=== PATIENT | male | born 1930 | race Asian ===

== ENCOUNTER → 2016-05-29 | Outpatient (CLI) | payer OTHER ==
[~2016-05-29] MED LIST: ALPR-411 PO; ASPI81TA28 PO; ATOR-22 PO; CHOL100010 PO; CYAN500T PO; CZR50 PO; HYDR25TA4 PO; MELATAB2 PO; OMEP40CA PO; VITA400C15 PO
--- NOTE | 2016-05-29 17:01 | ECHOCARDIOGRAM REPORT ---
*NOTICE TO RECEIVING LIBERTARIAN AGENCY This information is strictly Confidential and protected under [place] law. [place] law prohibits you from making any further disclosure of this information unless further disclosure is expressly permitted by the written consent of the person to whom it pertains or is authorized by law. A general authorization for the release of medical or other information is not sufficient for this purpose. Hospital accepts no responsibility if the information is made available to any other person, INCLUDING THE PATIENT. Interpretation Summary * Name: LUIS CERRATO Study Date: 05/29/2016 02:46 PM * Patient Location: [facility] HR: 86 * : 1930 (M/d/yyyy) Gender: Male Height: 64 in * Age: 85 yrs Ethnicity: Weight: 161 lb * Ordering Physician: Adeola Colorado * Referring Physician: Adeola Colorado * Performed By: Farzaneh Carroll RCS * * Reason For Study: GENERALIZED EDEMA * BSA: 1.8 m2 * -- Conclusions -- * The left ventricle is normal in size. * There is moderate concentric left ventricular hypertrophy. * Ejection Fraction = 50-55%. * Left ventricular systolic function is normal. * The right ventricular systolic function is normal. * Grade I diastolic dysfunction, (abnormal relaxation pattern). * The left atrial size is normal. * Right atrial size is normal. * No significant valvular pathology Procedure Details * A complete two-dimensional transthoracic echocardiogram was performed (2D, M-mode, Doppler and color flow Doppler). Left Ventricle * The left ventricle is normal in size. * There is moderate concentric left ventricular hypertrophy. * Ejection Fraction = 50-55%. * Left ventricular systolic function is normal. * The left ventricular wall motion is normal. Right Ventricle * The right ventricle is normal size. * The right ventricular systolic function is normal. Atria * The left atrial size is normal. * Right atrial size is normal. * The interatrial septum is intact with no evidence for an atrial septal defect. Mitral Valve * There is mild to moderate mitral annular calcification. * There is no mitral regurgitation noted. Tricuspid Valve * The tricuspid valve is not well visualized, but is grossly normal. * Significant tricuspid regurgitation is absent. Aortic Valve * The aortic valve is tricuspid. The leaflet thickness if normal. There is no aortic stenosis, and no significant insufficiency. * Aortic stenosis is absent. * There is no significant aortic regurgitation. Pulmonic Valve * The pulmonic valve is not well visualized. * There is no significant pulmonary regurgitation. Great Vessels * The aortic root and proximal ascending aorta are normal sized. Pericardium/Pleural * There is no pericardial effusion. Left Ventricular Diastolic Function * Grade I diastolic dysfunction, (abnormal relaxation pattern). MMode 2D Measurements and Calculations Ao root diam 4.6 cm Ao root area 16.5 cm\S\2 ACS 1.8 cm LA dimension 2.7 cm LA/Ao 0.60 LVAd ap4 22.5 cm\S\2 LVLd ap4 6.9 cm EDV(MOD-sp4) 59.0 ml EDV(sp4-el) 62.5 ml LVAs ap4 14.9 cm\S\2 LVLs ap4 6.3 cm ESV(MOD-sp4) 30.1 ml ESV(sp4-el) 30.1 ml EF(MOD-sp4) 49.1 % EF(sp4-el) 51.9 % LVAd ap2 25.4 cm\S\2 LVLd ap2 8.2 cm EDV(MOD-sp2) 64.8 ml EDV(sp2-el) 66.8 ml LVAs ap2 15.1 cm\S\2 LVLs ap2 6.3 cm ESV(MOD-sp2) 30.4 ml ESV(sp2-el) 30.9 ml EF(MOD-sp2) 53.1 % EF(sp2-el) 53.8 % LVLd %diff 15.9 % EDV(MOD-bp) 67.3 ml LVLs %diff 0.73 % ESV(MOD-bp) 30.3 ml EF(MOD-bp) 54.9 % SV(MOD-sp4) 29.0 ml SI(MOD-sp4) 16.2 ml/m\S\2 SV(MOD-sp2) 34.4 ml SI(MOD-sp2) 19.3 ml/m\S\2 SV(MOD-bp) 37.0 ml SI(MOD-bp) 20.7 ml/m\S\2 SV(sp4-el) 32.4 ml SI(sp4-el) 18.2 ml/m\S\2 SV(sp2-el) 36.0 ml SI(sp2-el) 20.2 ml/m\S\2 Doppler Measurements and Calculations MV E max ryan 73.3 cm/sec MV A max ryan 111.6 cm/sec MV E/A 0.66 MV P1/2t max ryan 75.9 cm/sec MV P1/2t 73.5 msec MVA(P1/2t) 3.0 cm\S\2 MV dec slope 302.4 cm/sec\S\2 MV dec time 0.25 sec Ao V2 max 72.8 cm/sec Ao max PG 2.1 mmHg Ao max PG (full) 0.68 mmHg AI max ryan 419.5 cm/sec AI max PG 70.4 mmHg AI dec slope 194.8 cm/sec\S\2 AI P1/2t 630.5 msec LV V1 max PG 1.4 mmHg LV V1 max 59.9 cm/sec MR max ryan 416.2 cm/sec MR max PG 69.3 mmHg PA V2 max 81.2 cm/sec PA max PG 2.6 mmHg TR max ryan 255.4 cm/sec
== END | disposition home or self-care (01) ==
LOC: C.CPL 14:38
PROVIDERS: ATTEND Internal Medicine
DX: R60.1 Generalized edema (principal); I51.7 Cardiomegaly

== ENCOUNTER → 2016-07-04 | Outpatient (CLI) | payer OTHER ==
--- NOTE | 2016-07-04 09:58 | DIAGNOSTIC IMAGING REPORT ---
ULTRASOUND LEFT LOWER EXTREMITY VENOUS CLINICAL HISTORY: Left leg pain and swelling. COMPARISON STUDY: Left lower extremity venous ultrasound dated 10/06/2014. TECHNIQUE: Real-time, grayscale, and color Doppler sonography of the deep veins of the left lower extremity was performed from the inguinal crease to the calf. Compression and augmentation were utilized. FINDINGS: There is no sonographic evidence of deep venous thrombosis identified in the left lower extremity. The common femoral, superficial femoral, and popliteal veins are patent and normally compressible. The greater saphenous vein and the profunda femoris vein at the junction with the common femoral vein are clear. The visualized calf veins are patent. Soft tissue edema is present in the left lower extremity. IMPRESSION: There is no sonographic evidence of deep venous thrombosis identified in the left lower extremity. Electronically signed by: Osvaldo Reilly M.D. 07/04/2016 9:57 AM Dictated Date/Time: 07/04/2016 9:56 AM
== END | disposition home or self-care (01) ==
LOC: C.ULTRBC 09:33
PROVIDERS: ATTEND Physician Assistant
DX: M79.605 Pain in left leg (principal); R60.0 Localized edema

== ENCOUNTER 2017-01-21 18:30 | Emergency (ER) | payer OTHER ==
[~2017-01-21] VITALS: Ht 170.2 cm; Wt 78.8 kg
[2017-01-21 18:46] VITALS: TEMP 36.6; Ht 170.2 cm; Wt 78.8 kg
--- NOTE | 2017-01-21 19:04 | EMERGENCY ROOM VISIT NOTE ---
History Report prepared by Tejal: Jessica Saleh Under the Supervision of: Dr. Krsihna Walker M.D. First contact with patient: 18:51 Chief Complaint: FALL Stated Complaint: REF BY History of Present Illness The patient is an 86 year old male with a past medical history of HTN and gout who presents to the ED with a cc of a fall that occurred yesterday. He reports he fell around 2100 last night when getting up from a table. He hit the left side of his head and left eye during the fall. He notes the floor was not carpeted. Positive swelling to the left eye. Negative LOC, headache, neck pain, chest pain, SOB, back pain, abdominal pain, vision changes. He states he saw his PCP earlier today, and on the way home, was called by a nurse and advised to come to the ED. The patient notes his doctor prescribed him Furosemide within the past 6 months and he takes Losartan for his hypertension. Source of History: patient Onset: 2100 last night Position: other (global) Timing: resolved Associated Symptoms: No LOC, No headache, No neck pain, No chest pain, No SOB, No abdominal pain, No back pain Review of Systems See HPI for pertinent positives and negatives. A total of ten systems were reviewed and were otherwise negative. Past Medical & Surgical Medical Problems: (1) Gout (2) Hypertension Social History Smoking Status: Never Smoker Alcohol Use: none Drug Use: none Marital Status: Housing Status: lives with family Occupation Status: retired Current/Historical Medications Scheduled Aspirin (Aspirin Ec), 81 MG PO DAILY Atorvastatin (Lipitor), 1 TAB PO DAILY Cholecalciferol (Vitamin D), 5,000 INTER.UNIT PO QAM Cyanocobalamin (Vitamin B-12), 500 MCG PO QPM Hydrochlorothiazide (Hctz), 12.5 MG PO DAILY Losartan Potassium (Losartan Potassium), 50 MG PO QAM Melatonin (Melatonin Maximum Strengt), 1 TAB PO HS Omeprazole (Prilosec), 40 MG PO BID Tocopheryl Acet,Dl-Alpha (Vitamin E), 400 INTER.UNIT PO BID Scheduled PRN Alprazolam (Alprazolam), 0.25 MG PO DAILY PRN for Anxiety Allergies Coded Allergies: Adhesives (Verified Allergy, Unknown, SOME TAPE YRS AGO-REDNESS, RASH, ) Allopurinol (Verified Allergy, Unknown, HIVES-pt not aware, 04/04/15) Physical Exam Vital Signs Date Time Temp Pulse Resp B/P (MAP) Pulse Ox O2 Delivery O2 Flow Rate FiO2 01/21/17 21:30 79 21 152/80 97 Room Air 01/21/17 19:45 96 01/21/17 19:37 96 Room Air 01/21/17 19:34 85 120/72 100 143/74 98 132/73 01/21/17 18:46 36.6 107 20 153/84 98 Room Air Physical Exam GENERAL: Awake, alert, well-appearing, NAD HENT: Normocephalic, atraumatic. EYES: Periorbital ecchymosis and swelling to left eye. PERRL bilaterally. No hyphema. EOMI without pain. Some chemosis, no subconjunctival hemorrhage. Sclera non-icteric. NECK: Supple. No nuchal rigidity. FROM. No midline tenderness to cervical spine. RESPIRATORY: CTAB, no rhonchi, wheezing, crackles CARDIAC: RRR, no MRG ABDOMEN: Soft, NTND, BS+ MSK: No chest wall TTP, no LE edema. No chest, back, abdomen or extremity pain. NEURO: GCS 15, CN 2-12 intact, moves all 4s on command SKIN: No rash or jaundice noted. Medical Decision & Procedures ER Provider Diagnostic Interpretation: Radiology results as stated below per my review and radiologist interpretation: CHEST ONE VIEW PORTABLE CLINICAL HISTORY: Altered mental status. Weakness. COMPARISON STUDY: Chest radiograph February 01, 2012. FINDINGS: Lung volumes are diminished. Dense right lower hemithorax calcification is likely pleural in location. This is unchanged. There is no pneumothorax or pleural effusion. Mild cardiomegaly is noted without evidence of pulmonary edema. Apparent right pleural thickening is unchanged. IMPRESSION: No acute cardiopulmonary findings. No change in appearance of the chest. Electronically signed by: Hernando Flynn M.D. 01/21/2017 7:[address] OF THE CERVICAL SPINE WITHOUT CONTRAST CLINICAL HISTORY: Fall. COMPARISON STUDY: No previous studies for comparison. TECHNIQUE: Helical axial images of the cervical spine were obtained without IV contrast. Sagittal and coronal reconstructions were viewed. A dose lowering technique was utilized adhering to the principles of ALARA. FINDINGS: Craniocervical junction is intact. There is no acute cervical spine fracture. There is reversal of the normal cervical lordosis. Mild anterolisthesis of C2 on C3 and C7 on T1 is likely due to facet arthrosis. There is no prevertebral edema. 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 IMPRESSION: No acute cervical spine fracture or subluxation. Electronically signed by: Hernando Flynn M.D. 01/21/2017 9:[address] OF THE HEAD WITHOUT CONTRAST CLINICAL HISTORY: Fall. Altered mental status. Weakness. COMPARISON STUDY: Head CT February 01, 2012. TECHNIQUE: Helical axial images of the head were obtained without IV contrast. Automated exposure control was utilized for the study. A dose lowering technique was utilized adhering to the principles of ALARA. FINDINGS: No acute intracranial hemorrhage, midline shift or mass effect is present. Ventricular system is normal for age. Basilar cisterns are patent. There are no extra-axial collections. Purcell-white differentiation is maintained. There is a left periorbital contusion. Left globe is intact. There is no retrobulbar hematoma. There is no calvarial fracture. Facial bones are better depicted on the maxillofacial CT. IMPRESSION: 1. No acute intracranial findings. 2. No calvarial fracture. 3. Left periorbital contusion. Left globe intact with no retrobulbar hematoma. Electronically signed by: Hernando Flynn M.D. 01/21/2017 9:[address] WITHOUT CONTRAST CLINICAL HISTORY: s/p fall, L sided periorbital swelling. COMPARISON STUDY: Head CT February 01, 2012. TECHNIQUE: A maxillofacial CT was performed without IV contrast. Coronal and sagittal reformats were viewed. A dose lowering technique was utilized adhering to the principles of ALARA. FINDINGS: Left periorbital soft tissue swelling suggests a contusion. The left globe is intact. There is no retrobulbar hematoma. No acute facial fracture is identified. Alignment of the temporomandibular joints is anatomic. Multiple teeth are missing. There are multiple dental amalgams. No skull base fracture is identified. Cervical spine CT will be reported separately. IMPRESSION: 1. No acute facial fracture. 2. Left periorbital contusion. Left globe intact with no retrobulbar hematoma. Electronically signed by: Hernando Flynn M.D. 01/21/2017 9:25 PM Laboratory Results 01/21/17 19:25 Red Blood Count 3.79, Mean Corpuscular Volume 93.9, Mean Corpuscular Hemoglobin 31.4, Mean Corpuscular Hemoglobin Concent 33.4, Mean Platelet Volume 10.9, Neutrophils (%) (Auto) 70.1, Lymphocytes (%) (Auto) 20.6, Monocytes (%) (Auto) 6.5, Eosinophils (%) (Auto) 2.4, Basophils (%) (Auto) 0.2, Neutrophils # (Auto) 2.89, Lymphocytes # (Auto) 0.85, Monocytes # (Auto) 0.27, Eosinophils # (Auto) 0.10, Basophils # (Auto) 0.01 01/21/17 19:25 Test 01/21/17 19:25 01/21/17 19:40 White Blood Count 4.13 K/uL (4.8-10.8) Red Blood Count 3.79 M/uL (4.7-6.1) Hemoglobin 11.9 g/dL (14.0-18.0) Hematocrit 35.6 % (42-52) Mean Corpuscular Volume 93.9 fL (80-100) Mean Corpuscular Hemoglobin 31.4 pg (25-34) Mean Corpuscular Hemoglobin Concent 33.4 g/dl (32-36) Platelet Count 136 K/uL (130-400) Mean Platelet Volume 10.9 fL (7.4-10.4) Neutrophils (%) (Auto) 70.1 % Lymphocytes (%) (Auto) 20.6 % Monocytes (%) (Auto) 6.5 % Eosinophils (%) (Auto) 2.4 % Basophils (%) (Auto) 0.2 % Neutrophils # (Auto) 2.89 K/uL (1.4-6.5) Lymphocytes # (Auto) 0.85 K/uL (1.2-3.4) Monocytes # (Auto) 0.27 K/uL (0.11-0.59) Eosinophils # (Auto) 0.10 K/uL (0-0.5) Basophils # (Auto) 0.01 K/uL (0-0.2) RDW Standard Deviation 45.1 fL (36.4-46.3) RDW Coefficient of Variation 13.1 % (11.5-14.5) Immature Granulocyte % (Auto) 0.2 % Immature Granulocyte # (Auto) 0.01 K/uL (0.00-0.02) Prothrombin Time 9.9 SECONDS (9.0-12.0) Prothromb Time International Ratio 0.9 (0.9-1.1) Activated Partial Thromboplast Time 25.0 SECONDS (21.0-31.0) Partial Thromboplastin Ratio 1.0 Anion Gap 5.0 mmol/L (3-11) Est Creatinine Clear Calc Drug Dose 45.1 ml/min Estimated GFR () 68.1 Estimated GFR (Non- 58.7 BUN/Creatinine Ratio 16.8 (10-20) Calcium Level 8.4 mg/dl (8.5-10.1) Magnesium Level 1.6 mg/dl (1.8-2.4) Total Bilirubin 0.4 mg/dl (0.2-1) Direct Bilirubin < 0.1 mg/dl (0-0.2) Aspartate Amino Transf (AST/SGOT) 18 U/L (15-37) Alanine Aminotransferase (ALT/SGPT) 26 U/L (12-78) Alkaline Phosphatase 76 U/L (45-117) Troponin I < 0.015 ng/ml (0-0.045) Total Protein 6.6 gm/dl (6.4-8.2) Albumin 3.5 gm/dl (3.4-5.0) Thyroid Stimulating Hormone (TSH) 1.500 uIu/ml (0.300-4.500) Urine Color YELLOW Urine Appearance CLEAR (CLEAR) Urine pH 5.5 (4.5-7.5) Urine Specific [place] 1.015 (1.000-1.030) Urine Protein NEG (NEG) Urine Glucose (UA) NEG (NEG) Urine Ketones NEG (NEG) Urine Occult Blood NEG (NEG) Urine Nitrite NEG (NEG) Urine Bilirubin NEG (NEG) Urine Urobilinogen NEG (NEG) Urine Leukocyte Esterase NEG (NEG) Laboratory results reviewed by me Medications Administered Medications (Trade) Dose Ordered Sig/Manuel Route Start Time Stop Time Status Last Admin Dose Admin Magnesium Oxide (Mag-Ox Tab) 800 mg BID STAT PO 01/21/17 21:38 01/21/17 21:40 DC 01/21/17 21:53 800 MG Potassium Chloride (Klor-Con M10) 40 meq STK-MED ONCE .ROUTE 01/21/17 21:51 01/21/17 21:52 DC 01/21/17 21:53 40 MEQ ECG Indication: weakness Rate (beats per minute): 95 Rhythm: normal sinus Findings: left axis deviation, other (Normal intervals, T-wave flattening in inferior leads, No other STS changes) ED Course 1853: The patient was evaluated in room C4. A complete history and physical exam was performed. 2119: I reevaluated the patient. He had a bowel movement and feels well. I discussed his results and discharge instructions and he verbalized complete understanding and agreement. Medical Decision The patient is an 86 year old male with a past medical history of HTN and gout who presents to the ED with a cc of a fall that occurred yesterday. Patient was seen and evaluated the bedside. Patient states that he had a recent fall that occurred last evening. Patient is unsure as to whether he had a trip and fall or just fell. Patient denies any LOC. Patient denies any lightheadedness or dizziness. was seen by his primary care physician Bradly says he did not have blood work completed but then was called thereafter and he was told to come to the emergency department. Patient did have blood work completed along with an EKG, troponin, and CTs of the head face and neck. I did obtain a report after these orders were placed which show that the patient does not have any fracture of the face but does have a C4 transverse process fracture. Patient did have repeat CTs completed of the head, neck, and face. Patient CTs were negative acute. Patient did not have any retrobulbar hematoma. Patient's blood work shows chronic anemia which is fairly unchanged from prior. Patient is fairly normal kidney function. LFTs and lipase normal. EKG did not show any acute ischemic changes and the patient had a negative troponin. Patient has a normal TSH. Given the fact that the patient describes no lightheadedness or dizziness with regard to his fall this is most likely mechanical in nature. Patient does not have any acute findings seen on CT scans given this is deemed suitable for outpatient follow-up and treatment. Patient was told of all findings. Patient intubated without difficulty and tolerated by mouth. Patient was given potassium and magnesium as he did have low potassium and magnesium. Patient was given strict follow-up, discharge, and return precautions. All questions were answered. Patient was deemed suitable for outpatient follow-up at this time. Patient agreed with the plan of care and was safely discharged home. Medication Reconcilliation Current Medication List: was personally reviewed by me Blood Pressure Screening Patient's blood pressure: Elevated blood pressure Blood pressure disposition: Referred to PCP Impression Primary Impression: Fall Additional Impressions: Facial contusion Hypokalemia Hypomagnesemia Anemia Scribe Attestation The scribe's documentation has been prepared under my direction and personally reviewed by me in its entirety. I confirm that the note above accurately reflects all work, treatment, procedures, and medical decision making performed by me. Departure Information Dispostion Home / Self-Care Referrals Adeola Colorado M.D. (PCP) Patient Instructions ED Hematoma, My [facility] Additional Instructions Please return to the emergency department if you have worsening or recurrent symptoms not amenable to at-home treatment. Please call for a follow-up appointment with her primary care physician. Please take your medications as prescribed. If you have other concerns and/or complaints please feel free to also call your primary care physician's office or return the ED for further evaluation, management, and treatment. You may take tylenol 650 mg every 6 hours as needed for pain. Apply ice packs to her face to help with swelling. Please follow-up with her primary care physician. Take your medications as prescribed. You have been examined and treated today on an emergency basis only. This is not a substitute for, or an effort to provide, complete comprehensive medical care. It is impossible to recognize and treat all injuries or illnesses in a single emergency department visit. It is therefore important that you follow up closely with [facility], your PCP, and/or your specialist(s). Call as soon as possible for an appointment. Thank you for your time and consideration. I look forward to speaking with you again soon. Please don't hesitate to call us if you have any questions. Problem Qualifiers Primary Impression: Fall Encounter type: subsequent encounter Qualified Codes: W19.XXXD - Unspecified fall, subsequent encounter Additional Impressions: Facial contusion Encounter type: initial encounter Qualified Codes: S00.83XA - Contusion of other part of head, initial encounter Anemia Anemia type: unspecified type Qualified Codes: D64.9 - Anemia, unspecified
--- NOTE | 2017-01-21 19:23 | DIAGNOSTIC IMAGING REPORT ---
CHEST ONE VIEW PORTABLE CLINICAL HISTORY: Altered mental status. Weakness. COMPARISON STUDY: Chest radiograph February 01, 2012. FINDINGS: Lung volumes are diminished. Dense right lower hemithorax calcification is likely pleural in location. This is unchanged. There is no pneumothorax or pleural effusion. Mild cardiomegaly is noted without evidence of pulmonary edema. Apparent right pleural thickening is unchanged. IMPRESSION: No acute cardiopulmonary findings. No change in appearance of the chest. Electronically signed by: Hernando Flynn M.D. 01/21/2017 7:21 PM Dictated Date/Time: 01/21/2017 7:20 PM
[2017-01-21 19:37] VITALS: O2SAT 96
[2017-01-21 19:42] LABS: BASO % 0.2 %; BASO ABS # 0.01 K/uL (0-0.2); COMPLETE YES; EOS % 2.4 %; HEMATOCRIT 35.6 % (42-52); IG% 0.2 %; LYMPH % 20.6 %; LYMPH ABS # 0.85 K/uL (1.2-3.4); MEAN CELL VOLUME 93.9 fL (80-100); MEAN CORPUSCULAR HEMOGLOBIN 31.4 pg (25-34); MEAN CORPUSCULAR HGB CONC 33.4 g/dl (32-36); MEAN PLATELET VOLUME 10.9 fL (7.4-10.4); MONO % 6.5 %; NEUT % 70.1 %; PLATELET COUNT 136 K/uL (130-400); RED BLOOD COUNT 3.79 M/uL (4.7-6.1); WHITE BLOOD COUNT 4.13 K/uL (4.8-10.8)
[2017-01-21 19:53] LABS: URINE APPEARANCE CLEAR (CLEAR); URINE BILIRUBIN NEG (NEG); URINE COLOR YELLOW; URINE NITRITE NEG (NEG); URINE PH 5.5 (4.5-7.5); URINE SPECIFIC GRAVITY 1.015 (1.000-1.030); UROBILINOGEN NEG (NEG)
[2017-01-21 19:53] LABS: INR 0.9 (0.9-1.1); PROTHROMBIN TIME (PATIENT) 9.9 SECONDS (9.0-12.0)
[2017-01-21 19:54] LABS: MANUAL MICROSCOPIC REQUIRED? NO; REVIEW REQ? NO
[2017-01-21 20:05] LABS: ALT/SGPT 26 U/L (12-78); AST/SGOT 18 U/L (15-37); BLOOD UREA NITROGEN 19 mg/dl (7-18); BUN/CREATININE RATIO 16.8 (10-20); CALCIUM 8.4 mg/dl (8.5-10.1); CARBON DIOXIDE 29 mmol/L (21-32); CHLORIDE 106 mmol/L (98-107); CREATININE 1.14 mg/dl (0.60-1.40); GLUCOSE 121 mg/dl (70-99); MAGNESIUM 1.6 mg/dl (1.8-2.4); POTASSIUM 3.4 mmol/L (3.5-5.1); SODIUM 140 mmol/L (136-145)
[2017-01-21 20:16] LABS: ALKALINE PHOSPHATASE 76 U/L (45-117)
--- NOTE | 2017-01-21 21:17 | DIAGNOSTIC IMAGING REPORT ---
CT OF THE HEAD WITHOUT CONTRAST CLINICAL HISTORY: Fall. Altered mental status. Weakness. COMPARISON STUDY: Head CT February 01, 2012. TECHNIQUE: Helical axial images of the head were obtained without IV contrast. Automated exposure control was utilized for the study. A dose lowering technique was utilized adhering to the principles of ALARA. FINDINGS: No acute intracranial hemorrhage, midline shift or mass effect is present. Ventricular system is normal for age. Basilar cisterns are patent. There are no extra-axial collections. Purcell-white differentiation is maintained. There is a left periorbital contusion. Left globe is intact. There is no retrobulbar hematoma. There is no calvarial fracture. Facial bones are better depicted on the maxillofacial CT. IMPRESSION: 1. No acute intracranial findings. 2. No calvarial fracture. 3. Left periorbital contusion. Left globe intact with no retrobulbar hematoma. Electronically signed by: Hernando Flynn M.D. 01/21/2017 9:16 PM Dictated Date/Time: 01/21/2017 9:12 PM
--- NOTE | 2017-01-21 21:26 | DIAGNOSTIC IMAGING REPORT ---
MAXILLOFACIAL CT WITHOUT CONTRAST CLINICAL HISTORY: s/p fall, L sided periorbital swelling. COMPARISON STUDY: Head CT February 01, 2012. TECHNIQUE: A maxillofacial CT was performed without IV contrast. Coronal and sagittal reformats were viewed. A dose lowering technique was utilized adhering to the principles of ALARA. FINDINGS: Left periorbital soft tissue swelling suggests a contusion. The left globe is intact. There is no retrobulbar hematoma. No acute facial fracture is identified. Alignment of the temporomandibular joints is anatomic. Multiple teeth are missing. There are multiple dental amalgams. No skull base fracture is identified. Cervical spine CT will be reported separately. IMPRESSION: 1. No acute facial fracture. 2. Left periorbital contusion. Left globe intact with no retrobulbar hematoma. Electronically signed by: Hernando Flynn M.D. 01/21/2017 9:25 PM Dictated Date/Time: 01/21/2017 9:21 PM
[2017-01-21 21:30] VITALS: BP 152/80; PULSE 79; O2SAT 97
--- NOTE | 2017-01-21 21:30 | DIAGNOSTIC IMAGING REPORT ---
CT OF THE CERVICAL SPINE WITHOUT CONTRAST CLINICAL HISTORY: Fall. COMPARISON STUDY: No previous studies for comparison. TECHNIQUE: Helical axial images of the cervical spine were obtained without IV contrast. Sagittal and coronal reconstructions were viewed. A dose lowering technique was utilized adhering to the principles of ALARA. FINDINGS: Craniocervical junction is intact. There is no acute cervical spine fracture. There is reversal of the normal cervical lordosis. Mild anterolisthesis of C2 on C3 and C7 on T1 is likely due to facet arthrosis. There is no prevertebral edema. 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 IMPRESSION: No acute cervical spine fracture or subluxation. Electronically signed by: Hernando Flynn M.D. 01/21/2017 9:29 PM Dictated Date/Time: 01/21/2017 9:25 PM
[2017-01-21] MEDS ORDERED: POTASSIUM CHLORIDE 20 MEQ TABCR PO STA (21:38)
[2017-01-21] MEDS ORDERED: MAGNESIUM OXIDE 400 MG TAB PO STA (21:38)
[2017-01-21] MEDS ORDERED: POTASSIUM CHLORIDE 10 MEQ TABCR ONE (21:51)
== END 2017-01-21 22:00 | disposition home or self-care (01) ==
LOC: C.EDB 18:32 → C.EDC 22:00
DX: S00.83XA Contusion of other part of head, initial encounter (principal); W01.198A Fall on same level from slipping, tripping and stumbling with subsequent striking against other object, initial encounter; E87.6 Hypokalemia; E83.42 Hypomagnesemia; D64.9 Anemia, unspecified; I10 Essential (primary) hypertension; Z79.82 Long term (current) use of aspirin

== ENCOUNTER 2019-03-24 08:57 | Inpatient (IN) ==
[2019-03-24 10:17] LABS: Basophils # (auto) 0.01 K/uL (0-0.2); Basophils % (auto) 0.2 %; Eosinophils # (auto) 0.05 K/uL (0-0.5); Eosinophils % (auto) 0.9 %; Hematocrit (blood only) 33.3 % (42-52); Hemoglobin 11.2 g/dL (14.0-18.0); Immature Granulocytes # (auto) 0.02 K/uL (0.00-0.02); Immature Granulocytes % (auto) 0.3 %; Lymphocytes # (auto) 0.92 K/uL (1.2-3.4); Mean Corpuscular Hemoglobin 31.2 pg (25-34); Mean Corpuscular Hgb Conc 33.6 g/dL (32-36); Mean Corpuscular Volume 92.8 fL (80-100); Mean Platelet Volume 9.7 fL (7.4-10.4); Monocytes # (auto) 0.38 K/uL (0.11-0.59); Monocytes % (auto) 6.6 %; Neutrophils # (auto) 4.37 K/uL (1.4-6.5); Platelet Count 172 K/uL (130-400); RDW Coefficient of Variation 14.8 % (11.5-14.5); RDW Standard Deviation 50.6 fL (36.4-46.3); Red Blood Count 3.59 M/uL (4.7-6.1); White Blood Count 5.75 K/uL (4.8-10.8)
[2019-03-24 10:28] LABS: INR 0.9 (0.9-1.1); Partial Thromboplastin Ratio 0.8; Partial Thromboplastin Time 22.4 Seconds (21.0-31.0); Prothrombin Time 9.7 Seconds (9.0-12.0)
[2019-03-24 10:32] LABS: Alanine Aminotransferase 15 U/L (12-78); Albumin Level 3.2 gm/dl (3.4-5.0); Aspartate Aminotransferase 11 U/L (15-37); BUN Creatinine Ratio 18.1 (10-20); Blood Urea Nitrogen 23 mg/dl (7-18); Calcium 8.6 mg/dl (8.5-10.1); Carbon Dioxide 29 mmol/L (21-32); Chloride 106 mmol/L (98-107); Creatinine Clr Calc Pharmacy 42.2 ml/min; Est GFR (African American) 58.3; Est GFR (Non-African American) 50.3; Glucose 131 mg/dl (70-99); Potassium 3.9 mmol/L (3.5-5.1); Sodium 141 mmol/L (136-145)
--- NOTE | 2019-03-24 10:38 | CT Scan Report ---
CT head/brain wo con CLINICAL HISTORY: 88 years-old Male with fall eval for bleed. Acute head injury status post fall TECHNIQUE: Multiple axial CT images of the head were obtained without contrast. A dose lowering tech nique was utilized adhering to the principles of ALARA. CT DOSE: 1193.14 mGy.cm COMPARISON: CT cervical spine of same day, head CT 08/13/2018. FINDINGS: No acute intracranial hemorrhage, midline shift, intracranial mass, hydrocephalus, territorial ischem ia or abnormal extra-axial collection. Mild age-related involutional changes. Cerebral vascular calci fications are noted. Senescent calcifications of the right lentiform nucleus. The calvarium is intact. 6 mm left anterior frontal bone osteoma. The paranasal sinuses, mastoid air cells, and middle ear cavities are clear. IMPRESSION: No acute intracranial abnormality or calvarial fracture. ACT 112: Negative or not required by law. The above report was generated using voice recognition software. It may contain grammatical, syntax o r spelling errors. Electronically signed by: Marshall Mejia M.D. 03/24/2019 10:37 AM
--- NOTE | 2019-03-24 10:39 | CT Scan Report ---
CT OF THE CERVICAL SPINE CLINICAL HISTORY: Neck pain status post trauma COMPARISON STUDY: January 2017 CT DOSE: TECHNIQUE: CT scan of the cervical spine was performed from the skull base to the thoracic inlet. Christianne ges are reviewed in the axial, sagittal, and coronal planes. IV contrast was not administered for thi s examination. A dose lowering technique was utilized adhering to the principles of ALARA. FINDINGS: There is a 9 mm right-sided thyroid nodule. No further follow-up is indicated given the patient's age . No pneumothorax is evident. The prevertebral soft tissues are normal. No fractures or traumatic subluxations are visualized. There are advanced multilevel degenerative changes. 3 mm of anterolisthesis of C7 on T1 is felt to be degenerative IMPRESSION: No evidence of acute fracture or traumatic subluxation. ACT 112: Negative or not required by law. Electronically signed by: Jean Pierre King M.D. 03/24/2019 10:38 AM
[2019-03-24 10:43] LABS: Alkaline Phosphatase 92 U/L (45-117); Bilirubin,Total 0.5 mg/dl (0.2-1); Globulin 3.1 gm/dl (2.5-4.0); Total Protein 6.3 gm/dl (6.4-8.2); Troponin I < 0.015 ng/ml (0-0.045)
[2019-03-24] MEDS: SODIUM CHLORIDE 0.9% 1000ML 500 ML IV ONE ×2 (11:23→11:32)
--- NOTE | 2019-03-24 12:05 | XRay Report ---
XR hip RT 2V w pelvis HISTORY: 88 years-old Male fall eval for fx acute pelvic pain status post fall COMPARISON: CT abdomen pelvis 08/16/2017 TECHNIQUE: AP view of the pelvis with 2 views of the right hip FINDINGS: Mild osteophyte is of the bilateral femoral acetabular joints. No acute fracture, dislocation, opaque foreign body or avascular necrosis. Degenerative changes are noted about the imaged lumbar spine. IMPRESSION: No acute fracture or dislocation. ACT 112: Negative or not required by law. The above report was generated using voice recognition software. It may contain grammatical, syntax o r spelling errors. Electronically signed by: Marshall Mejia M.D. 03/24/2019 12:04 PM
--- NOTE | 2019-03-24 12:07 | XRay Report ---
XR chest 2V PA/lateral HISTORY: 88 years-old Male weak eval for pna acute chest trauma status post fall COMPARISON: Chest radiograph 10/27/2018 TECHNIQUE: AP and lateral views of the chest FINDINGS: Cardiac silhouette is enlarged, unchanged. Thoracic aortic tortuosity with calcification. No pneumoth orax. Chronic blunting of the costophrenic angles with chronic interstitial coarsening of the lung ba ses. No pneumothorax, large pleural effusion, overt pulmonary edema or new focal airspace consolidati on. Pleural calcifications of the right lung base redemonstrated. Degenerative changes of the shoulde rs and spine. No acute displaced rib fracture identified. IMPRESSION: Chronic findings as above without acute process. ACT 112: Negative or not required by law. The above report was generated using voice recognition software. It may contain grammatical, syntax o r spelling errors. Electronically signed by: Marshall Mejia M.D. 03/24/2019 12:06 PM
--- NOTE | 2019-03-24 12:48 | Electrocardiogram Report ---
Test Reason : Blood Pressure : / mmHG Vent. Rate : 081 BPM Atrial Rate : 081 BPM P-R Int : 148 ms QRS Dur : 072 ms QT Int : 400 ms P-R-T Axes : 022 -14 029 degrees QTc Int : 465 ms Normal sinus rhythm Normal ECG When compared with ECG of 02-MAR-2019 02:43, No significant change was found Confirmed by Gerardo Guerra ([id number]) on 03/24/2019 12:48:04 PM Referred By: REFERRED SELF Confirmed By:Gerardo Guerra
[2019-03-24] MEDS ORDERED: OPTIRAY 320 125ml IV PRN (12:52)
--- NOTE | 2019-03-24 13:11 | CT Scan Report ---
CT ANGIOGRAM OF THE CHEST CLINICAL HISTORY: Near syncope. COMPARISON STUDY: Chest x-ray dated 03/24/2019. TECHNIQUE: Following the IV administration of 120 cc of Optiray 320, CT angiogram of the chest was pe rformed from the upper abdomen to the thoracic inlet utilizing the pulmonary embolus protocol. Images are reviewed in the axial, sagittal, and coronal planes. 3-D MIPS images are created and assessed. I V contrast was administered without complication. A dose lowering technique was utilized adhering to the principles of ALARA. FINDINGS: Thyroid: Imaged portions of the thyroid gland are normal in size and attenuation. A low-attenuation n odule in the right lobe measures up to 1.3 cm. Thoracic aorta: There is mild atherosclerotic calcification of the thoracic aorta. There is mild ecta quintin of the ascending thoracic aorta which measures up to 3.6 cm in diameter. The remainder of the tho racic aorta is normal in caliber and the arch demonstrates standard 3-vessel anatomy. The arch vessel s are widely patent. No dissection is seen. Pulmonary vasculature: The main pulmonary arteries are dilated suggesting pulmonary artery hypertensi on. There are no filling defects identified in main, lobar, or segmental pulmonary branches to sugges t pulmonary embolus. Evaluation of the subsegmental branches is degraded by motion artifact. Heart: The heart is enlarged and without pericardial effusion. There are coronary artery calcificatio ns. Lungs and pleural spaces: Evaluation of the lung parenchyma is degraded by motion artifact. A large c alcified pleural plaque is seen at the right lung base. There is bibasilar scarring/atelectasis. No a irspace consolidation is seen typical for pneumonia and there is no pleural effusion. The trachea and central airways are clear. Mediastinum: There is no mediastinal lymphadenopathy. Sharron: Clear. Axillae: There is no axillary lymphadenopathy. Upper abdomen: There are least 2 hepatic cyst identified measuring up to 3.2 cm. Calcified gallstones are partially imaged. Skeletal structures: The skeletal structures are osteopenic. Degenerative change is noted in the shou lders and thoracic spine. No lytic or blastic bony lesions are seen. IMPRESSION: 1. There is no evidence of pulmonary embolus in the main, lobar, or segmental pulmonary arteries. 2. There is mild ectasia of the ascending thoracic aorta which measures up to 3.6 cm. The thoracic ao rta is otherwise normal in caliber. No dissection is seen. 3. Cardiomegaly. 4. There is no airspace consolidation or pleural effusion. 5. Cholelithiasis. 6. A large calcified pleural plaque is seen at the right lung base. 7. Additional findings as above. ACT 112: Negative or not required by law. Electronically signed by: Osvaldo Reilly M.D. 03/24/2019 1:10 PM
--- NOTE | 2019-03-24 13:16 | CT Scan Report ---
CT ANGIOGRAM OF THE NECK CLINICAL HISTORY: Neck pain. Near syncope. COMPARISON STUDY: Carotid artery ultrasound dated 02/13/2009. TECHNIQUE: Following the IV administration of 120 of Optiray 320, CT angiogram of the neck was perfor med from the aortic arch to the skull base. Images are reviewed in the axial, sagittal, and coronal p lanes. 3-D MIPS images are created and assessed. IV contrast was administered without complication. A ll measurements were calculated based on NASCET criteria. A dose lowering technique was utilized adh ering to the principles of ALARA. CT DOSE: 454.45 mGy.cm FINDINGS: Thoracic aorta: There is mild atherosclerotic calcification of the thoracic aorta. Visualized portion s of the thoracic aorta are normal in caliber. The aortic arch demonstrates standard 3-vessel anatomy . Right carotid arterial system: The right common carotid artery is widely patent, as are the right int ernal and external carotid arteries. Left carotid arterial system: The left common carotid artery is widely patent, as are the left physician/internist al and external carotid arteries. There is mild atherosclerotic plaque in the carotid bulb. Vertebral arteries: The vertebral arteries are widely patent bilaterally and codominant. Subclavian arteries: Widely patent bilaterally. Intracranial vascular: The visualized intracranial vessels at the skull base are patent. Jugular veins: Patent bilaterally. Brain parenchyma: The visualized brain parenchyma the skull base is within normal limits. Lung apices: Partially visualized upper lobe lung parenchyma appears clear. Soft tissues: The visualized pharyngeal soft tissues are normal in appearance noting angiographic pha se technique. The oropharyngeal airway appears widely patent. The right lobe of the thyroid gland is heterogeneous. Low-attenuation nodules measure up to 1.3 cm. The salivary glands are normal in appear ance. No cervical lymphadenopathy is seen. Skeletal structures: The skeletal structures are osteopenic. The visualized calvarium at the skull ba se appears intact. The imaged cervical spine is maintained noting advanced spondylosis. No lytic or b lastic lesion is seen. Sinuses and mastoids: The visualized paranasal sinuses at the skull base are clear. The mastoid air c ells are well pneumatized. IMPRESSION: Unremarkable CT angiogram of the neck. ACT 112: Negative or not required by law. Electronically signed by: Osvaldo Reilly M.D. 03/24/2019 1:15 PM
[2019-03-24 13:37] LABS: Appearance Urine Clear (Clear); Bilirubin Urine Negative (Negative); Blood Urine Negative (Negative); Color Urine Yellow; Glucose Urine UA Negative (Negative); Ketones Urine Negative (Negative); Leukocyte Esterase Urine Negative (Negative); Nitrite Urine Negative (Negative); Protein Urine Negative (Negative); Specific Gravity Urine 1.024 (1.000-1.030); Urobilinogen Urine Negative (Negative); pH Urine 8.5 (4.5-7.5)
--- NOTE | 2019-03-24 14:52 | History & Physical Report ---
Date of Service March 24, 2019 Assessment & Plan (1) Multiple falls: (2) Dizziness: This is an 88-year-old [place] male who has significant past medical history of CAD, chronic diastolic CHF, HTN, HLD, gouty arthropathy, CKD stage III, GERD, anxiety who presents to ED secondary to dizziness that started at approximately 6:30 AM. In ED patient remained hemodynamically stable. His orthostatics were negative for orthostatic hypotension. Lab work revealed stable H&H 11.2 and 33.3, WBC 5.75, platelet 172, mild elevation BUN/creatinine 23 and 1.28, electrolytes WNL, glucose 131, troponin WNL, TSH WNL. Urinalysis negative for infection. He underwent numerous imaging studies including chest and neck CTA. Study was negative for PE, mild ectasia of the ascending thoracic aorta 3.6 cm but otherwise normal. Cardiomegaly. Neck CTA revealed 1.3 cm right lobe thyroid nodule but otherwise unremarkable CT angiogram. Head CT negative for acute abnormality. Cervical spine CT revealed 9 mm right-sided thyroid nodule along with 3 mm of anterior listhesis of C7 on T1 likely degenerative with advanced multilevel degenerative changes. Dizziness and lightheadedness possibly 2/2 to over diuresis and mild dehydration, vertigo, cerebellar lesion, cervical radiculopathy admit to telemetry obtain MRI - r/o cerebellar lesion consult PT/OT IVF 80cc/hr hold lasix for now - reassess volume status in a.m. repeat troponin and monitor on tele (3) Neck pain: CT neck reveals: There are advanced multilevel degenerative changes. 3 mm of anterolisthesis of C7 on T1 is felt to be degenerative IMPRESSION: No evidence of acute fracture or traumatic subluxation. Pain likely 2/2 to DDD heat TID PT/OT consulted (4) CAD (coronary artery disease): no CP or SOB continue statin and metoprolol troponin negative, ecg no ST t wave changes (5) Diastolic CHF: compensated daily weights, strict I and O heart healthy diet continue metoprolol, hold lasix re assess volume status in a.m. (6) Hypertension: blood pressure stable, orthostatics negative continue metoprolol but hold furosemide (7) HLD (hyperlipidemia): continue statin (8) CKD (chronic kidney disease) stage 3, GFR 30-59 ml/min: baseline Cr 1.2 bun/cr 23 and 1.28 pt clinically appears on dry side give cautious IVF 80cc/hr hold lasix and re assess tomorrow morning (9) Anemia: H/H stable at 11.2/33.3 monitor (10) Gout: continue uloric (11) DVT prophylaxis: lovenox Disposition: admit to telemetry, case management consulted Follow up: PCP Dr. Colorado upon discharge Pt was seen and examined in collaboration with Dr. Guillen, please see addendum History of Present Illness Chief Complaint: Dizziness and fall x3. Primary Care Provider: Adeola Colorado MD This is an 88-year-old [place] male who has significant past medical history of CAD, chronic diastolic CHF, HTN, HLD, gouty arthropathy, CKD stage III, GERD, anxiety who presents to ED secondary to dizziness that started at approximately 6:30 AM. He elicits that he woke up around 6 AM feeling very well. When he was in the bathroom around 6:30 AM he began to feel significantly unwell. He felt very dizzy, weak legs and feeling like he could pass out. He denies dizzy sensation feeling like vertigo or spinning sensation. He does admit to feeling like he could pass out and weak at the legs. He admits over the past 2 to 3 weeks he has had approximately 3 falls. First fall he fell and struck head above the eyebrow of his right eye, second fall he fell on his left hip and third fall was on his buttock. Denies any injury from the fall. Over the past 2 to 3 weeks he has been very unsteady and feeling off balance. Also over the past 2 to 3 weeks he has been complaining of significant neck pain and decreased mobility of neck. He did see PCP regarding neck symptoms in which x-ray was performed which showed severe advanced degenerative cervical DDD. He denies any pain in arms or numbness and tingling. With episode of dizziness this morning he denies any associated chest pain, shortness of breath, palpitation, diaphoresis, nausea or vomiting. Unfortunately his is currently hospitalized at [facility] secondary to severe stroke and he is currently residing at [facility] by himself. He feels he is eating and drinking appropriately and taking medications as prescribed. He denies any recent illness, fever, chills, sweats, URI symptoms, cough, nausea, vomiting, abdominal pain, dysuria, increased urgency or frequency with urination, melena, hematochezia. Denies ever having similar symptoms in the past. In ED patient remained hemodynamically stable. His orthostatics were negative for orthostatic hypotension. Lab work revealed stable H&H 11.2 and 33.3, WBC 5.75, platelet 172, mild elevation BUN/creatinine 23 and 1.28, electrolytes WNL, glucose 131, troponin WNL, TSH WNL. Urinalysis negative for infection. He underwent numerous imaging studies including chest and neck CTA. Study was negative for PE, mild ectasia of the ascending thoracic aorta 3.6 cm but otherwise normal. Cardiomegaly. Neck CTA revealed 1.3 cm right lobe thyroid nodule but otherwise unremarkable CT angiogram. Head CT negative for acute abnormality. Cervical spine CT revealed 9 mm right-sided thyroid nodule along with 3 mm of anterior listhesis of C7 on T1 likely degenerative with advanced multilevel degenerative changes. Allergies Allergy/AdvReac Type Severity Reaction Status Date / Time adhesive Allergy Unknown SOME TAPE Verified 03/24/19 10:21 YRS AGO-REDNESS, RASH allopurinol Allergy Unknown HIVES-pt Verified 03/24/19 10:21 not aware Home Medications Home Medications Medication Instructions Recorded Confirmed Type atorvastatin 20 mg PO DAILY 08/16/18 03/24/19 History cholecalciferol (vitamin D3) 5,000 unit PO DAILY 08/16/18 03/24/19 History [Vitamin D3] loratadine 10 mg PO DAILY 08/16/18 03/24/19 History magnesium oxide 400 mg PO DAILY 08/16/18 03/24/19 History omeprazole 20 mg PO BID 08/16/18 03/24/19 History potassium chloride 10 meq PO DAILY 08/16/18 03/24/19 History febuxostat [Uloric] 40 mg PO DAILY 10/22/18 03/24/19 History metoprolol succinate [Toprol XL] 25 mg PO DAILY 10/27/18 03/24/19 History silver sulfadiazine [SSD] 1 applic TOPICAL DAILY 01/16/19 03/24/19 History furosemide 40 mg PO DAILYBD 03/24/19 03/24/19 History furosemide 60 mg PO QAM 03/24/19 03/24/19 History Past Med/Surg History Medical History (Updated 03/24/19 @ 14:53 by Leonie Sandhu PA-C) CAD (coronary artery disease) CKD (chronic kidney disease) stage 3, GFR 30-59 ml/min Diastolic CHF Gout HLD (hyperlipidemia) Hypertension (Chronic) Surgical History (Updated 03/24/19 @ 14:43 by Leonie Sandhu PA-C) History of colonoscopy History of esophagogastroduodenoscopy (EGD) Positive H. pylori, large hiatal hernia History of surgery on arm Ulnar fracture status post surgical fixation Family History Other Family history unknown Social History (Updated 03/24/19 @ 14:44 by Leonie Sandhu PA-C) Preferred Language: B[place] Communication Ability: Effective Communication Ability Comment: Hard of hearing Hearing Ability: Hard of Hearing marital status: Current Living Situation: Family Current Living Situation Comment: Currently living by himself, hospit alized for stroke Feels Safe at Home: Yes Smoking Status: Never smoker Hx Alcohol Use: No Review of Systems Review of Systems: All systems reviewed & are unremarkable except as noted in HPI & below Physical Exam Physical Exam: Constitutional: WD/WN, elderly, [place], male, vitals as above, NAD, sitting up in bed, pleasant, conversing easily Head: Normocephalic, Atraumatic, very hard of hearing Eyes: PERRL, conjunctivae normal, anicteric sclerae ENMT: external ear and nose normal, TMs visualized and normal, external ear canal with mild wax but no impaction, oropharynx normal Neck: trachea midline, no thyromegaly normal visual inspection Respiratory: normal respiratory effort, lungs clear to auscultation, no wheeze, rales, rhonchi. Normal insp/exp effort, no accessory muscle use Cardiovascular: RRR, 2/6 FREDA noted best RUSB, no edema Vessels: no JVD or carotid bruit Chest: normal inspection of chest Abdomen: normal bowel sounds, soft, nontender, no hepatosplenomegaly Musculoskeletal: no cyanosis or clubbing, extremities motor strength 5/5 Skin: no rashes, bilateral lower extremity icthyosis, skin thin, dry, moderate turgor Neurologic: PERRL, EOMI, accommodation nl, no face palsy, no dysarthria CN's II-XI intact bilaterally and moves all extremities Psychiatric: A+Ox3, euthymic affect Lymphatic: no cervical or axillary lymphadenopathy : deferred Results & Data Vital Signs (Past 12 Hours) Vital Signs Temp Pulse Pulse Resp BP BP Pulse Ox 03/24/19 13:05 36.6 C 72 18 139/68 99 03/24/19 11:00 75 20 127/71 93 03/24/19 09:55 97 03/24/19 09:09 36.4 C L 92 H 20 133/72 96 Laboratory Results Short CBC 03/24/19 Range/Units 10:02 WBC 5.75 (4.8-10.8) K/uL Hgb 11.2 L (14.0-18.0) g/dL Hct 33.3 L (42-52) % Plt Count 172 (130-400) K/uL BMP 03/24/19 10:02 Sodium 141 Potassium 3.9 Chloride 106 Carbon Dioxide 29 BUN 23 H Creatinine 1.28 Glucose 131 H Calcium 8.6 Cardiac Enzymes 03/24/19 Range/Units 10:02 Troponin I < 0.015 (0-0.045) ng/ml Liver Function 03/24/19 Range/Units 10:02 Total Bilirubin 0.5 (0.2-1) mg/dl AST 11 L (15-37) U/L ALT 15 (12-78) U/L Alkaline Phosphatase 92 (45-117) U/L Albumin 3.2 L (3.4-5.0) gm/dl Urine 03/24/19 Range/Units 13:27 Urine Color Yellow Urine Appearance Clear (Clear) Urine pH 8.5 H (4.5-7.5) Ur Specific [place] 1.024 (1.000-1.030) Urine Protein Negative (Negative) Urine Glucose (UA) Negative (Negative) Diagnostic Findings C spine CT: FINDINGS: There is a 9 mm right-sided thyroid nodule. No further follow-up is indicated given the patient's age. No pneumothorax is evident. The prevertebral soft tissues are normal. No fractures or traumatic subluxations are visualized. There are advanced multilevel degenerative changes. 3 mm of anterolisthesis of C7 on T1 is felt to be degenerative IMPRESSION: No evidence of acute fracture or traumatic subluxation. Head CT: IMPRESSION: No acute intracranial abnormality or calvarial fracture. CXR: IMPRESSION: Chronic findings as above without acute process. Hip/pelvis xray: FINDINGS: Mild osteophyte is of the bilateral femoral acetabular joints. No acute fracture, dislocation, opaque foreign body or avascular necrosis. Degenerative changes are noted about the imaged lumbar spine. IMPRESSION: No acute fracture or dislocation. Chest CTA: IMPRESSION: 1. There is no evidence of pulmonary embolus in the main, lobar, or segmental pulmonary arteries. 2. There is mild ectasia of the ascending thoracic aorta which measures up to 3.6 cm. The thoracic aorta is otherwise normal in caliber. No dissection is seen. 3. Cardiomegaly. 4. There is no airspace consolidation or pleural effusion. 5. Cholelithiasis. 6. A large calcified pleural plaque is seen at the right lung base. 7. Additional findings as above. Neck CTA: IMPRESSION: Unremarkable CT angiogram of the neck. Medications Administered Ioversol (Optiray 320 125ml) 120 ml IV ONCE PRN PRN Reason: Interaction Checking Stop: 03/28/19 12:51 Last Admin: 03/24/19 12:52 Dose: 120 ml Documented by: [id number] Discontinued Medications Sodium Chloride (Nss 1000ml) 500 mls @ 999 mls/hr IV .Q31M ONE Stop: 03/24/19 11:45 Last Admin: 03/24/19 11:32 Dose: Not Given Documented by: [id number] ECG Rate (beats per minute): 81 Rhythm: normal sinus Findings: + prolonged QT (485ms) Code Status & VTE Plan Code Status Full Code VTE Prophylaxis Plan VTE Prophylaxis will be ordered: Yes Supervising Physician Co-Signing Physician Notes I saw this patient with the physician sales operations assistant, I participated in the history, physical, review of systems, and physical exam. I reviewed the medications with the patient and the physician sales operations assistant and helped reconcile the medications. I helped take a detailed family and social history as well. I formulated the assessment and plan personally with the physician sales operations assistant and went over it with the patient. Physical Exam Gen-AAO x 3, NAD, Afebrile Head-NCAT, EOMI, PERRLA, Anicteric Sclera, No Posterior Pharyngeal Erythema Neck-Supple, No JVD, No Thyromegaly, No Masses, No LAD, No Bruits Lungs-Clear to Auscultation Bilaterally, No Rales, No Rhonchi, No Wheezing, No Crepitus Chest-No S4, +S1, +S2, No S3, No Murmurs, No Rubs, No Gallops, No Ectopy Abdomen-Soft, Bowel Sounds Present, Non Tender, Non Distended, No Hepatomegaly, No Splenomegaly, No Palpable Masses, No Rebound, No Rigidity, No Guarding Musculoskeletal-Full Range of Motion Bilaterally, No CVAT Extremities-No Cyanosis, No Clubbing, No Edema Nuero-Cranial Nerves II-XII grossly intact, Motor WNL, DTRs WNL, Strength WNL, Non Focal Psych-Normal Mood (1) Anemia Anemia type: unspecified type Qualified Code(s): D64.9 - Anemia, unspecified
[2019-03-24] MEDS ORDERED: LORazepam 0.5 MG/1 ML VIAL IV STA (16:02)
[2019-03-24] MEDS ORDERED: ALUMINUM/MAGNESIUM SUSP 30 ML UDC PO PRN (16:40)
[2019-03-24] MEDS ORDERED: ACETAMINOPHEN 325 MG TAB PO PRN (16:40)
[2019-03-24] MEDS ORDERED: POLYETHYLENE (MIRALAX) 17 GM PACK PO PRN (16:40)
[2019-03-24] MEDS ORDERED: MAGNESIUM HYDROXIDE SUSP 30 ML UDC PO PRN (16:40)
[2019-03-24] MEDS ORDERED: ONDANSETRON INJ 2 MG/ML 2 ML VIAL IV PRN (16:40)
--- NOTE | 2019-03-24 17:12 | Emergency Department Note ---
Entered by Francisco León acting as a scribe for Ty Loera MD History of Present Illness General Chief complaint: Neck Injury/Pain Time Seen by Provider: 03/24/19 09:30 Source: patient Limitations: no limitations History of Present Illness Onset (ago): hour(s) (3.5) Location: head Pain Consistency: + constant Quality: + other (heaviness) Associated symptoms: + other (near-syncope, neck stiffness) The patient is a 88 year old male who presents to the Emergency Room with complaints of constant lightheadedness starting about 3.5 hours ago. The patient states his neck has been stiff and weak for about 2 weeks. He states he cannot straighten his neck. He states he fell 3 times in the past week. He notes the first time he fell he hit his right hip. He notes the second time he fell he hit his knees. He states he fell last night and hit his left hip. He states he did not lose consciousness or hit his head any of the times he fell. He states this morning he almost fell down this morning after walking around. He notes his head feels heavy. The patient denies having chest pain, arm pain, SOB, abdominal pain, head pain, numbness or weakness in his arms. Home Medications Home Medications Medication Instructions Recorded Confirmed Type atorvastatin 20 mg PO DAILY 08/16/18 03/24/19 History cholecalciferol (vitamin D3) 5,000 unit PO DAILY 08/16/18 03/24/19 History [Vitamin D3] loratadine 10 mg PO DAILY 08/16/18 03/24/19 History magnesium oxide 400 mg PO DAILY 08/16/18 03/24/19 History omeprazole 20 mg PO BID 08/16/18 03/24/19 History potassium chloride 10 meq PO DAILY 08/16/18 03/24/19 History febuxostat [Uloric] 40 mg PO DAILY 10/22/18 03/24/19 History metoprolol succinate [Toprol XL] 25 mg PO DAILY 10/27/18 03/24/19 History silver sulfadiazine [SSD] 1 applic TOPICAL DAILY 01/16/19 03/24/19 History furosemide 40 mg PO DAILYBD 03/24/19 03/24/19 History furosemide 60 mg PO QAM 03/24/19 03/24/19 History Allergies Allergy/AdvReac Type Severity Reaction Status Date / Time adhesive Allergy Unknown SOME TAPE Verified 03/24/19 10:21 YRS AGO-REDNESS, RASH allopurinol Allergy Unknown HIVES-pt Verified 03/24/19 10:21 not aware Past Med/Surg History Medical History CAD (coronary artery disease) CKD (chronic kidney disease) stage 3, GFR 30-59 ml/min Diastolic CHF Gout HLD (hyperlipidemia) Hypertension (Chronic) Surgical History History of colonoscopy History of esophagogastroduodenoscopy (EGD) Positive H. pylori, large hiatal hernia History of surgery on arm Ulnar fracture status post surgical fixation Family History Other Family history unknown Social History Preferred Language: Montenegrin Communication Ability: Effective Communication Ability Comment: Hard of hearing Hearing Ability: Hard of Hearing marital status: Current Living Situation: Family Current Living Situation Comment: Currently living by himself, hospitalized for stroke Feels Safe at Home: Yes Smoking Status: Never smoker Hx Alcohol Use: No Review of Systems See HPI for pertinent positives & negatives. and A total of 10 systems reviewed and were otherwise negative Physical Exam Vital Signs Vital Signs - 24 hr 03/24/19 09:09 03/24/19 09:55 03/24/19 10:10 Temperature 36.4 C L Temperature Source Oral Pulse Rate - Lying 80 Pulse Rate - Sitting 77 Pulse Rate - Standing 89 Pulse Rate 92 H Pulse Rate [Right Finger] Respiratory Rate 20 Respiratory Effort / Characteristics Non-Labored Spontaneous Respiratory Depth Normal Respiratory Pattern Regular Blood Pressure - Lying 133/67 Blood Pressure - Sitting 143/66 H Blood Pressure- Standing 144/77 H Blood Pressure 133/72 Blood Pressure [Left Arm] Blood Pressure Mean 92 Blood Pressure Mean [Left Arm] Blood Pressure Position Lying Blood Pressure Position [Left Arm] Pulse Oximetry 96 97 Oxygen Delivery Method Room Air Room Air Sepsis Recent Fever Within 48 Hours No Sepsis New/Unexplained Change in Mental Status No Sepsis Action Taken by Nursing No Action Required 03/24/19 11:00 03/24/19 13:05 Temperature 36.6 C Temperature Source Oral Pulse Rate - Lying Pulse Rate - Sitting Pulse Rate - Standing Pulse Rate Pulse Rate [Right Finger] 75 72 Respiratory Rate 20 18 Respiratory Effort / Characteristics Non-Labored Spontaneous Non-Labored Spontaneous Respiratory Depth Normal Normal Respiratory Pattern Regular Blood Pressure - Lying Blood Pressure - Sitting Blood Pressure- Standing Blood Pressure Blood Pressure [Left Arm] 127/71 139/68 Blood Pressure Mean Blood Pressure Mean [Left Arm] 89 91 Blood Pressure Position Blood Pressure Position [Left Arm] Sitting Pulse Oximetry 93 99 Oxygen Delivery Method Room Air Room Air Sepsis Recent Fever Within 48 Hours Sepsis New/Unexplained Change in Mental Status Sepsis Action Taken by Nursing Constitutional: Vital signs reviewed. Eyes: Pupils are equal round reactive to light. Conjunctiva are noninjected. ENT: Pharynx is clear without erythema or exudate. Mucous membranes are moist. Neck supple without meningeal signs. No midline tenderness to the cervical spine. No carotid bruit. Respiratory: Clear to auscultation bilaterally. Breath sounds are equal bilaterally. Cardiovascular: Regular rate and rhythm. No rubs or gallops. GI: Soft, nondistended and nontender. Bowel sounds are present. Musculoskeletal: No peripheral edema. No lower extremity tenderness. Chronic venous stasis discoloration to the lower extremities. Integumentary: No cyanosis. Neurological: The patient is awake and alert. Cranial nerves II-XII are intact. Motor is 5 out of 5 all extremities. Sensation is intact to light touch all extremities. Normal speech. No pronator drift. Psychiatric: Normal affect. Course Course 0933: The patient was evaluated in room B9, and a complete history and physical examination were performed. 1126: The patient refused fluids. He is eating crackers and soda. I am waiting for the X-Ray. 1229: I reevaluated the patient. I recommended getting a CT angio of his neck and chest to evaluate aneurysm and carotid dissection given his neck pain, near-syncope, and widened mediastinum on chest X-Ray. 1323: I reevaluated the patient. He sat up to go to the bathroom and felt really lightheaded. I recommended hospitalization for further evaluation, and he is agreeable. 1329: I discussed the patient's case with Leonie Crystal PA-C. Dr. Guillen [facility] Hospitalist, will evaluate the patient for further management. Administered Medications Discontinued Medications Sodium Chloride (Nss 1000ml) 500 mls @ 999 mls/hr IV .Q31M ONE Stop: 03/24/19 11:45 Last Admin: 03/24/19 11:32 Dose: Not Given Documented by: [id number] Lorazepam (Ativan) 0.5 mg in 1 mls @ 1 mls/min IV NOW STA Stop: 03/24/19 16:03 Last Admin: 03/24/19 16:59 Dose: Not Given Documented by: [id number] Ioversol (Optiray 320 125ml) 120 ml IV ONCE PRN PRN Reason: Interaction Checking Stop: 03/28/19 12:51 Last Admin: 03/24/19 12:52 Dose: 120 ml Documented by: [id number] Medical Decision Making Differential Diagnosis Differential Diagnosis includes but is not limited to orthostatic hypotension, anemia, infection, cardiac, UTI, and ICH. Medical Records Attestation: I reviewed the patient's medical records. The patient was seen at the ED on March 02 for hypertension and dizziness. He had a work-up here and was diagnosed with dizziness and dehydration. He had a hemoglobin of 11.4. Home Medications Current Medication List: was personally reviewed by me Laboratory Data Attestation: I reviewed the patient's lab results. Result diagrams: 03/24/19 10:02 03/24/19 10:02 Lab Results 03/24/19 03/24/19 03/24/19 Range/Units 10:02 10:02 10:02 WBC 5.75 (4.8-10.8) K/uL RBC 3.59 L (4.7-6.1) M/uL Hgb 11.2 L (14.0-18.0) g/dL Hct 33.3 L (42-52) % MCV 92.8 (80-100) fL MCH 31.2 (25-34) pg MCHC 33.6 (32-36) g/dL RDW Std Deviation 50.6 H (36.4-46.3) fL RDW Coeff of Pete 14.8 H (11.5-14.5) % Plt Count 172 (130-400) K/uL MPV 9.7 (7.4-10.4) fL Immature Gran % (Auto) 0.3 % Neut % (Auto) 76.0 % Lymph % (Auto) 16.0 % Sterling % (Auto) 6.6 % Eos % (Auto) 0.9 % Baso % (Auto) 0.2 % Immature Gran # (Auto) 0.02 (0.00-0.02) K/uL Neut # (Auto) 4.37 (1.4-6.5) K/uL Lymph # (Auto) 0.92 L (1.2-3.4) K/uL Sterling # (Auto) 0.38 (0.11-0.59) K/uL Eos # (Auto) 0.05 (0-0.5) K/uL Baso # (Auto) 0.01 (0-0.2) K/uL PT 9.7 (9.0-12.0) Seconds INR 0.9 (0.9-1.1) APTT 22.4 (21.0-31.0) Seconds PTT Ratio 0.8 Sodium 141 (136-145) mmol/L Potassium 3.9 (3.5-5.1) mmol/L Chloride 106 (98-107) mmol/L Carbon Dioxide 29 (21-32) mmol/L Anion Gap 6.0 (3-11) BUN 23 H (7-18) mg/dl Creatinine 1.28 (0.6-1.4) mg/dl Est Cr Clr Drug Dosing 42.2 ml/min Est GFR ( Amer) 58.3 Est GFR (Non-Af Amer) 50.3 BUN/Creatinine Ratio 18.1 (10-20) Glucose 131 H (70-99) mg/dl Calcium 8.6 (8.5-10.1) mg/dl Magnesium 2.0 (1.8-2.4) mg/dl Total Bilirubin 0.5 (0.2-1) mg/dl AST 11 L (15-37) U/L ALT 15 (12-78) U/L Alkaline Phosphatase 92 (45-117) U/L Troponin I < 0.015 (0-0.045) ng/ml Total Protein 6.3 L (6.4-8.2) gm/dl Albumin 3.2 L (3.4-5.0) gm/dl Globulin 3.1 (2.5-4.0) gm/dl Albumin/Globulin Ratio 1.0 (0.9-2) TSH 1.510 (0.300-4.500) uIu/ml Urine Color Urine Appearance (Clear) Urine pH (4.5-7.5) Ur Specific [place] (1.000-1.030) Urine Protein (Negative) Urine Glucose (UA) (Negative) Urine Ketones (Negative) Urine Blood (Negative) Urine Nitrite (Negative) Urine Bilirubin (Negative) Urine Urobilinogen (Negative) Ur Leukocyte Esterase (Negative) 03/24/19 Range/Units 13:27 WBC (4.8-10.8) K/uL RBC (4.7-6.1) M/uL Hgb (14.0-18.0) g/dL Hct (42-52) % MCV (80-100) fL MCH (25-34) pg MCHC (32-36) g/dL RDW Std Deviation (36.4-46.3) fL RDW Coeff of Pete (11.5-14.5) % Plt Count (130-400) K/uL MPV (7.4-10.4) fL Immature Gran % (Auto) % Neut % (Auto) % Lymph % (Auto) % Sterling % (Auto) % Eos % (Auto) % Baso % (Auto) % Immature Gran # (Auto) (0.00-0.02) K/uL Neut # (Auto) (1.4-6.5) K/uL Lymph # (Auto) (1.2-3.4) K/uL Sterling # (Auto) (0.11-0.59) K/uL Eos # (Auto) (0-0.5) K/uL Baso # (Auto) (0-0.2) K/uL PT (9.0-12.0) Seconds INR (0.9-1.1) APTT (21.0-31.0) Seconds PTT Ratio Sodium (136-145) mmol/L Potassium (3.5-5.1) mmol/L Chloride (98-107) mmol/L Carbon Dioxide (21-32) mmol/L Anion Gap (3-11) BUN (7-18) mg/dl Creatinine (0.6-1.4) mg/dl Est Cr Clr Drug Dosing ml/min Est GFR ( Amer) Est GFR (Non-Af Amer) BUN/Creatinine Ratio (10-20) Glucose (70-99) mg/dl Calcium (8.5-10.1) mg/dl Magnesium (1.8-2.4) mg/dl Total Bilirubin (0.2-1) mg/dl AST (15-37) U/L ALT (12-78) U/L Alkaline Phosphatase (45-117) U/L Troponin I (0-0.045) ng/ml Total Protein (6.4-8.2) gm/dl Albumin (3.4-5.0) gm/dl Globulin (2.5-4.0) gm/dl Albumin/Globulin Ratio (0.9-2) TSH (0.300-4.500) uIu/ml Urine Color Yellow Urine Appearance Clear (Clear) Urine pH 8.5 H (4.5-7.5) Ur Specific [place] 1.024 (1.000-1.030) Urine Protein Negative (Negative) Urine Glucose (UA) Negative (Negative) Urine Ketones Negative (Negative) Urine Blood Negative (Negative) Urine Nitrite Negative (Negative) Urine Bilirubin Negative (Negative) Urine Urobilinogen Negative (Negative) Ur Leukocyte Esterase Negative (Negative) Imaging Data Radiologist's Impression: Radiology results as stated below per my review and the radiologist's interpretation: CT OF THE CERVICAL SPINE CLINICAL HISTORY: Neck pain status post trauma COMPARISON STUDY: January 2017 CT DOSE: TECHNIQUE: CT scan of the cervical spine was performed from the skull base to the thoracic inlet. Images are reviewed in the axial, sagittal, and coronal planes. IV contrast was not administered for this examination. A dose lowering technique was utilized adhering to the principles of ALARA. FINDINGS: There is a 9 mm right-sided thyroid nodule. No further follow-up is indicated given the patient's age. No pneumothorax is evident. The prevertebral soft tissues are normal. No fractures or traumatic subluxati ons are visualized. There are advanced multilevel degenerative changes. 3 mm of anterolisthesis of C7 on T1 is felt to be degenerative IMPRESSION: No evidence of acute fracture or traumatic subluxation. ACT 112: Negative or not required by law. Electronically signed by: Jean Pierre King M.D. 03/24/2019 10:[address] head/brain wo con CLINICAL HISTORY: 88 years-old Male with fall eval for bleed. Acute head injury status post fall TECHNIQUE: Multiple axial CT images of the head were obtained without contrast. A dose lowering technique was utilized adhering to the principles of ALARA. CT DOSE: 1193.14 mGy.cm COMPARISON: CT cervical spine of same day, head CT 08/13/2018. FINDINGS: No acute intracranial hemorrhage, midline shift, intracranial mass, hydrocephalus, territorial ischemia or abnormal extra-axial collection. Mild age-related involutional changes. Cerebral vascular calcifications are noted. Senescent calcifications of the right lentiform nucleus. The calvarium is intact. 6 mm left anterior frontal bone osteoma. The paranasal sinuses, mastoid air cells, and middle ear cavities are clear. IMPRESSION: No acute intracranial abnormality or calvarial fracture. ACT 112: Negative or not required by law. The above report was generated using voice recognition software. It may contain grammatical, syntax or spelling errors. Electronically signed by: Marshall Mejia M.D. 03/24/2019 10:37 AM XR chest 2V PA/lateral HISTORY: 88 years-old Male weak eval for pna acute chest trauma status post fall COMPARISON: Chest radiograph 10/27/2018 TECHNIQUE: AP and lateral views of the chest FINDINGS: Cardiac silhouette is enlarged, unchanged. Thoracic aortic tortuosity with calci fication. No pneumothorax. Chronic blunting of the costophrenic angles with chronic interstitial coarsening of the lung bases. No pneumothorax, large pleural effusion, overt pulmonary edema or new focal airspace consolidation. Pleural calcifications of the right lung base redemonstrated. Degenerative changes of the shoulders and spine. No acute displaced rib fracture identified. IMPRESSION: Chronic findings as above without acute process. ACT 112: Negative or not required by law. The above report was generated using voice recognition software. It may contain grammatical, syntax or spelling errors. Electronically signed by: Marshall Mejia M.D. 03/24/2019 12:06 PM XR hip RT 2V w pelvis HISTORY: 88 years-old Male fall eval for fx acute pelvic pain status post fall COMPARISON: CT abdomen pelvis 08/16/2017 TECHNIQUE: AP view of the pelvis with 2 views of the right hip FINDINGS: Mild osteophyte is of the bilateral femoral acetabular joints. No acute fracture, dislocation, opaque foreign body or avascular necrosis. Degenerative changes are noted about the imaged lumbar spine. IMPRESSION: No acute fracture or dislocation. ACT 112: Negative or not required by law. The above report was generated using voice recognition software. It may contain grammatical, syntax or spelling errors. Electronically signed by: Marshall Mejia M.D. 03/24/2019 12:[address] ANGIOGRAM OF THE CHEST CLINICAL HISTORY: Near syncope. COMPARISON STUDY: Chest x-ray dated 03/24/2019. TECHNIQUE: Following the IV administration of 120 cc of Optiray 320, CT angiogram of the chest was performed from the upper abdomen to the thoracic inlet utilizing the pulmonary embolus protocol. Images are reviewed in the axial, sagittal, and coronal planes. 3-D MIPS images are created and assessed. IV contrast was administered without complication. A dose lowering technique was utilized adhering to the principles of ALARA. FINDINGS: Thyroid: Imaged portions of the thyroid gland are normal in size and attenuation. A low-attenuation nodule in the right lobe measures up to 1.3 cm. Thoracic aorta: There is mild atherosclerotic calcification of the thoracic aorta. There is mild ectasia of the ascending thoracic aorta which measures up to 3.6 cm in diameter. The remainder of the thoracic aorta is normal in caliber and the arch demonstrates standard 3-vessel anatomy. The arch vessels are widely patent. No dissection is seen. Pulmonary vasculature: The main pulmonary arteries are dilated suggesting pulmonary artery hypertension. There are no filling defects identified in main, lobar, or segmental pulmonary branches to suggest pulmonary embolus. Evaluation of the subsegmental branches is degraded by motion artifact. Heart: The heart is enlarged and without pericardial effusion. There are coronary artery calcifications. Lungs and pleural spaces: Evaluation of the lung parenchyma is degraded by motion artifact. A large calcified pleural plaque is seen at the right lung base. There is bibasilar scarring/atelectasis. No airspace consolidation is seen typical for pneumonia and there is no pleural effusion. The trachea and central airways are clear. Mediastinum: There is no mediastinal lymphadenopathy. Sharron: Clear. Axillae: There is no axillary lymphadenopathy. Upper abdomen: There are least 2 hepatic cyst identified measuring up to 3.2 cm. Calcified gallstones are partially imaged. Skeletal structures: The skeletal structures are osteopenic. Degenerative change is noted in the shoulders and thoracic spine. No lytic or blastic bony lesions are seen. IMPRESSION: 1. There is no evidence of pulmonary embolus in the main, lobar, or segmental pulmonary arteries. 2. There is mild ectasia of the ascending thoracic aorta which measures up to 3.6 cm. The thoracic aorta is otherwise normal in caliber. No dissection is seen. 3. Cardiomegaly. 4. There is no airspace consolidation or pleural effusion. 5. Cholelithiasis. 6. A large calcified pleural plaque is seen at the right lung base. 7. Additional findings as above. ACT 112: Negative or not required by law. Electronically signed by: Osvaldo Reilly M.D. 03/24/2019 1:[address] ANGIOGRAM OF THE NECK CLINICAL HISTORY: Neck pain. Near syncope. COMPARISON STUDY: Carotid artery ultrasound dated 02/13/2009. TECHNIQUE: Following the IV administration of 120 of Optiray 320, CT angiogram of the neck was performed from the aortic arch to the skull base. Images are reviewed in the axial, sagittal, and coronal planes. 3-D MIPS images are created and assessed. IV contrast was administered without complication. All measurements were calculated based on NASCET criteria. A dose lowering technique was utilized adhering to the principles of ALARA. CT DOSE: 454.45 mGy.cm FINDINGS: Thoracic aorta: There is mild atherosclerotic calcification of the thoracic aorta. Visualized portions of the thoracic aorta are normal in caliber. The aortic arch demonstrates standard 3-vessel anatomy. Right carotid arterial system: The right common carotid artery is widely patent, as are the right internal and external carotid arteries. Left carotid arterial system: The left common carotid artery is widely patent, as are the left internal and external carotid arteries. There is mild atheroscl erotic plaque in the carotid bulb. Vertebral arteries: The vertebral arteries are widely patent bilaterally and codominant. Subclavian arteries: Widely patent bilaterally. Intracranial vascular: The visualized intracranial vessels at the skull base are patent. Jugular veins: Patent bilaterally. Brain parenchyma: The visualized brain parenchyma the skull base is within normal limits. Lung apices: Partially visualized upper lobe lung parenchyma appears clear. Soft tissues: The visualized pharyngeal soft tissues are normal in appearance noting angiographic phase technique. The oropharyngeal airway appears widely patent. The right lobe of the thyroid gland is heterogeneous. Low-attenuation nodules measure up to 1.3 cm. The salivary glands are normal in appearance. No cervical lymphadenopathy is seen. Skeletal structures: The skeletal structures are osteopenic. The visualized calvarium at the skull base appears intact. The imaged cervical spine is maintained noting advanced spondylosis. No lytic or blastic lesion is seen. Sinuses and mastoids: The visualized paranasal sinuses at the skull base are clear. The mastoid air cells are well pneumatized. IMPRESSION: Unremarkable CT angiogram of the neck. ACT 112: Negative or not required by law. Electronically signed by: Osvaldo Reilly M.D. 03/24/2019 1:15 PM ECG Data Attestation: I personally reviewed and interpreted this ECG as follows: Indication: + other (lightheadness) Rate (beats per minute): 81 Rhythm: + normal sinus ECG Intervals/blocks: + Prolonged QT (at 414) ECG ST segments: no ST elevation ECG Findings: no PVCs Blood Pressure Blood Pressure Findings: Elevated blood pressure Blood Pressure Disposition: further management by hospitalist [facility] Narrative I did evaluate the patient as noted above. The patient is presenting with dizziness. He states that he has no vertigo but he has lightheadedness and almost passed out today. He stated he fell 3 times over the past week without hitting his head. He has minor pain to the right hip but otherwise no injuries from the falls. He does complain of neck stiffness and pain and feels like his head is too heavy to hold up. IV access was established. The patient was placed on a continuous monitor car operator. I did order and personally review the patient's 12-lead EKG as described above. His twelve-lead EKG does show a prolonged QT. There is no acute ischemia. I did order and personally reviewed the images of the patient's chest/hip and pelvis x-ray as described above. Chest x-ray per my interpretation demonstrates some mild widening of his mediastinum. No pneumonia. X-ray of the hip does not demonstrate fracture dislocation. I did order a urine analysis. He does not have a UTI. I did order and review the patient's blood work as noted in the electronic medical record. He has mild chronic anemia. Electrolytes are unremarkable. Troponin is negative. TSH is not elevated. I did order orthostatic vital signs. He does not show orthostasis. I did order IV fluids but he refused him. I did order a CT of the head and cervical spine and CT angiogram of the neck and chest. I did review the images myself as well as the radiology report as described above. There is no evidence of acute intracranial abnormality. No cervical fractures are noted. CT angiogram demonstrates no signs of carotid dissection or aortic aneurysm or dissection. I did discuss the test results with the patient. Given that he has had 3 falls over the past week and a near syncopal episode today I did feel he should be hospitalized for further care and evaluation. I did not feel he was safe to go home as I was concerned he may fall again and hurt himself. I did discuss case with the hospitalist and case hardener. Impression & Plan Near syncope, Multiple falls, Neck pain, Anemia Discharge Plan Visit Data *Final* Discharge Date/Time: 03/24/19 16:28 Chief Complaint: Neck Injury/Pain ED Provider: Ty Loera Discharge Problem: Near syncope, Multiple falls, Neck pain, Anemia Patient Disposition: Admitted As Inpatient Discharge Instructions Interventions: ED Discharge Assessment Last Done: 03/24/19 16:28 Discharge Problem: Anemia Qualifiers: Anemia type: unspecified type Qualified Code(s): D64.9 - Anemia, unspecified The scribe's documentation has been prepared under my direction and personally reviewed by me in its entirety. I confirm that the note above accurately reflects all work, treatment, procedures, and medical decision making performed by me.
[2019-03-24] MEDS ORDERED: INFLUENZA VACCINE HIGH DOSE 65+ 0.5 ML SYR IM ONE (17:13)
[2019-03-24] MEDS ORDERED: INFLUENZA ADMINISTRATION CHARGE ONE (17:13)
[2019-03-24] MEDS: SODIUM CHLORIDE 0.9% 1000ML 1,000 ML IV SCH (17:42)
[2019-03-24] MEDS: ENOXAPARIN INJ 40 MG/0.4 ML SYR SQ SCH (20:17)
[2019-03-24] MEDS: PANTOprazole 40 MG TAB PO SCH (20:19)
[2019-03-25] MEDS: SODIUM CHLORIDE 0.9% 1000ML 1,000 ML IV SCH (02:53)
[2019-03-25 05:59] LABS: Hematocrit (blood only) 31.5 % (42-52); Hemoglobin 10.5 g/dL (14.0-18.0); Mean Corpuscular Hemoglobin 31.2 pg (25-34); Mean Corpuscular Hgb Conc 33.3 g/dL (32-36); Mean Corpuscular Volume 93.5 fL (80-100); Mean Platelet Volume 9.4 fL (7.4-10.4); Platelet Count 148 K/uL (130-400); RDW Coefficient of Variation 14.8 % (11.5-14.5); RDW Standard Deviation 50.3 fL (36.4-46.3); Red Blood Count 3.37 M/uL (4.7-6.1); White Blood Count 5.06 K/uL (4.8-10.8)
[2019-03-25 06:46] LABS: BUN Creatinine Ratio 13.8 (10-20); Calcium 8.7 mg/dl (8.5-10.1); Creatinine Clr Calc Pharmacy 50.5 ml/min; Est GFR (African American) 72.5; Est GFR (Non-African American) 62.5; Potassium 3.8 mmol/L (3.5-5.1)
[2019-03-25 07:12] LABS: Estimated Average Glucose 134 mg/dl; Hemoglobin A1C 6.3 % (4.5-5.6)
--- NOTE | 2019-03-25 07:43 | Hospitalist Progress Note ---
Date of Service March 25, 2019 Assessment & Plan (1) Multiple falls: (2) Dizziness: This is an 88-year-old Thai male who has significant past medical history of CAD, chronic diastolic CHF, HTN, HLD, gouty arthropathy, CKD stage III, GERD, anxiety who presents to ED secondary to dizziness that started at approximately 6:30 AM. In ED patient remained hemodynamically stable. His orthostatics were negative for orthostatic hypotension. Lab work revealed stable H&H 11.2 and 33.3, WBC 5.75, platelet 172, mild elevation BUN/creatinine 23 and 1.28, electrolytes WNL, glucose 131, troponin WNL, TSH WNL. Urinalysis negative for infection. He underwent numerous imaging studies including chest and neck CTA. Study was negative for PE, mild ectasia of the ascending thoracic aorta 3.6 cm but otherwise normal. Cardiomegaly. Neck CTA revealed 1.3 cm right lobe thyroid nodule but otherwise unremarkable CT angiogram. Head CT negative for acute abnormality. Cervical spine CT revealed 9 mm right-sided thyroid nodule along with 3 mm of anterior listhesis of C7 on T1 likely degenerative with advanced multilevel degenerative changes. Dizziness and lightheadedness possibly 2/2 to over diuresis and mild dehydration, vertigo, cerebellar lesion, cervical radiculopathy admitted to telemetry obtain MRI - r/o cerebellar lesion -patient refused MRI twice yesterday, says that he is claustrophobic/anxious, agreed to get MRI done today consult PT/OT IVF 80cc/hr - stop IVF today, rechecked his orthostatic vital signs today - negative, therefore will stop fluids hold lasix for now - reassess volume status daily troponin- negative, and monitor on tele Echo - pending Called patient's daughter today (03/25/2019), she is concerned that patient has not been sleeping well for past couple of weeks, possibly depressed because of his 's stroke recently, playing online video games at night, not sleeping, only gets 2 to 3 hours of sleep. More recently also she noticed that he made mistakes with directions, called her wrong names,( she is the only daughter), also would confabulate stories. This was discussed with his PCP, who recommended to sleep 7 to 8 hours a day. (3) Neck pain: CT neck reveals: There are advanced multilevel degenerative changes. 3 mm of anterolisthesis of C7 on T1 is felt to be degenerative IMPRESSION: No evidence of acute fracture or traumatic subluxation. Pain likely 2/2 to DDD heat TID PT/OT consulted (4) CAD (coronary artery disease): no CP or SOB continue statin and metoprolol troponin negative, ecg no ST t wave changes (5) Diastolic CHF: compensated daily weights, strict I and O heart healthy diet continue metoprolol, hold lasix re assess volume status daily (6) Hypertension: blood pressure stable, orthostatics negative continue metoprolol but hold furosemide (7) HLD (hyperlipidemia): continue statin (8) CKD (chronic kidney disease) stage 3, GFR 30-59 ml/min: baseline Cr 1.2 bun/cr 23 and 1.28 pt clinically appears on dry side give cautious IVF 80cc/hr- will stop IVF current Cr down to 1.07, weight thuis AM does not correlate, will need to re- check hold lasix for now (9) Anemia: H/H stable at 11.2/33.3 monitor (10) Gout: continue uloric (11) DVT prophylaxis: lovenox Disposition: admit to telemetry, case management consulted Follow up: PCP Dr. [place] upon discharge Admission and Anticipated Discharge Date Admission Date: March 24, 2019 Subjective Patient lying in bed, in no acute distress. Denies any fevers, chills, chest pain or shortness of breath, abdominal pain, nausea or vomiting. He feels anxious/claustrophobic about getting MRI done. Communication with family Called his daughter, at . She resides in [place]. She was able to provide me more history, says that patient has been more restless, could not sleep, spends a lot of time playing video games. Says that since his had a stroke, he became more depressed. More recently he also had more falls and could not remember his daughter's name, or made mistakes with directions. She also says that lately he has been saying different stories, for example when asked about what happened to his , he would always say some different story. She mentioned it to his PCP at the last visit, his primary care doctor told him that he needs to sleep more than 2 to 3 hours, and advised him to sleep about 7 hours a day. Patient seems to be very stubborn and the kept telling the PCP that he only needs 2 to 3 hours of sleep. Daughter thinks that pt is addicted to online games/ feels depressed about his , says that besides his , he does not have much of social support here in the [place]. Review of Systems Review of Systems: All systems reviewed & are unremarkable except as noted in HPI & below Constitutional: no fever and no chills Respiratory: no cough and no dyspnea Cardiovascular: no chest pain and no dyspnea on exertion Gastrointestinal: no abdominal pain, no nausea and no vomiting Physical Exam Physical Exam: Constitutional: WD/WN, elderly, Thai, male, in NAD, sitting up in bed Head: Normocephalic, Atraumatic, very hard of hearing Eyes: PERRL, EOMI, conjunctivae normal, anicteric sclerae ENMT: external ear and nose normal, oropharynx normal Neck: trachea midline, no thyromegaly normal visual inspection Respiratory: normal respiratory effort, lungs clear to auscultation, no wheeze, rales, rhonchi. Normal insp/exp effort, no accessory muscle use Cardiovascular: RRR, 2/6 FREDA noted best RUSB, no edema Vessels: no JVD or carotid bruit Chest: normal inspection of chest Abdomen: normal bowel sounds, soft, nontender, nondistended Musculoskeletal: no cyanosis or clubbing, extremities motor strength 5/5 Skin: no rashes, bilateral lower extremity icthyosis, skin thin, dry, moderate turgor Neurologic: PERRL, EOMI, accommodation nl, no face palsy, no dysarthria CN's II-XI intact bilaterally and moves all extremities Psychiatric: A+Ox3, euthymic affect Results & Data ([facility]) Vital Signs (Past 12 Hours) Vital Signs Temp Pulse Pulse Resp BP Pulse Ox 03/25/19 07:38 76 03/25/19 07:33 36.8 C 70 18 123/66 96 03/25/19 04:42 82 03/25/19 03:20 36.4 C L 71 18 133/69 96 03/25/19 00:14 36.7 C 71 18 122/67 93 03/24/19 19:53 36.7 C 80 18 121/65 96 Laboratory Results 03/25/19 03/25/19 03/25/19 Range/Units 05:47 05:47 05:47 WBC 5.06 (4.8-10.8) K/uL RBC 3.37 L (4.7-6.1) M/uL Hgb 10.5 L (14.0-18.0) g/dL Hct 31.5 L (42-52) % MCV 93.5 (80-100) fL MCH 31.2 (25-34) pg MCHC 33.3 (32-36) g/dL RDW Std Deviation 50.3 H (36.4-46.3) fL RDW Coeff of Pete 14.8 H (11.5-14.5) % Plt Count 148 (130-400) K/uL MPV 9.4 (7.4-10.4) fL Immature Gran % (Auto) % Neut % (Auto) % Lymph % (Auto) % [place] % (Auto) % Eos % (Auto) % Baso % (Auto) % Immature Gran # (Auto) (0.00-0.02) K/uL Neut # (Auto) (1.4-6.5) K/uL Lymph # (Auto) (1.2-3.4) K/uL [place] # (Auto) (0.11-0.59) K/uL Eos # (Auto) (0-0.5) K/uL Baso # (Auto) (0-0.2) K/uL PT (9.0-12.0) Seconds INR (0.9-1.1) APTT (21.0-31.0) Seconds PTT Ratio Sodium 143 (136-145) mmol/L Potassium 3.8 (3.5-5.1) mmol/L Chloride 109 H (98-107) mmol/L Carbon Dioxide 29 (21-32) mmol/L Anion Gap 4.0 (3-11) BUN 15 (7-18) mg/dl Creatinine 1.07 (0.6-1.4) mg/dl Est Cr Clr Drug Dosing 50.5 ml/min Est GFR ( Amer) 72.5 Est GFR (Non-Af Amer) 62.5 BUN/Creatinine Ratio 13.8 (10-20) Glucose 96 (70-99) mg/dl Estimat Average Glucose 134 mg/dl Hemoglobin A1c 6.3 H (4.5-5.6) % Calcium 8.7 (8.5-10.1) mg/dl Magnesium (1.8-2.4) mg/dl Total Bilirubin (0.2-1) mg/dl AST (15-37) U/L ALT (12-78) U/L Alkaline Phosphatase (45-117) U/L Troponin I (0-0.045) ng/ml Total Protein (6.4-8.2) gm/dl Albumin (3.4-5.0) gm/dl Globulin (2.5-4.0) gm/dl Albumin/Globulin Ratio (0.9-2) Triglycerides 124 (0-150) mg/dl Cholesterol 181 (0-200) mg/dl LDL Cholesterol, Calc 108 mg/dl VLDL Cholesterol, Calc 25 mg/dl HDL Cholesterol 48 mg/dl Cholesterol/HDL Ratio 4 TSH (0.300-4.500) uIu/ml Urine Color Urine Appearance (Clear) Urine pH (4.5-7.5) Ur Specific Bandy (1.000-1.030) Urine Protein (Negative) Urine Glucose (UA) (Negative) Urine Ketones (Negative) Urine Blood (Negative) Urine Nitrite (Negative) Urine Bilirubin (Negative) Urine Urobilinogen (Negative) Ur Leukocyte Esterase (Negative) 03/24/19 03/24/19 03/24/19 Range/Units 16:50 13:27 10:02 WBC 5.75 (4.8-10.8) K/uL RBC 3.59 L (4.7-6.1) M/uL Hgb 11.2 L (14.0-18.0) g/dL Hct 33.3 L (42-52) % MCV 92.8 (80-100) fL MCH 31.2 (25-34) pg MCHC 33.6 (32-36) g/dL RDW Std Deviation 50.6 H (36.4-46.3) fL RDW Coeff of Pete 14.8 H (11.5-14.5) % Plt Count 172 (130-400) K/uL MPV 9.7 (7.4-10.4) fL Immature Gran % (Auto) 0.3 % Neut % (Auto) 76.0 % Lymph % (Auto) 16.0 % [place] % (Auto) 6.6 % Eos % (Auto) 0.9 % Baso % (Auto) 0.2 % Immature Gran # (Auto) 0.02 (0.00-0.02) K/uL Neut # (Auto) 4.37 (1.4-6.5) K/uL Lymph # (Auto) 0.92 L (1.2-3.4) K/uL [place] # (Auto) 0.38 (0.11-0.59) K/uL Eos # (Auto) 0.05 (0-0.5) K/uL Baso # (Auto) 0.01 (0-0.2) K/uL PT (9.0-12.0) Seconds INR (0.9-1.1) APTT (21.0-31.0) Seconds PTT Ratio Sodium (136-145) mmol/L Potassium (3.5-5.1) mmol/L Chloride (98-107) mmol/L Carbon Dioxide (21-32) mmol/L Anion Gap (3-11) BUN (7-18) mg/dl Creatinine (0.6-1.4) mg/dl Est Cr Clr Drug Dosing ml/min Est GFR ( Amer) Est GFR (Non-Af Amer) BUN/Creatinine Ratio (10-20) Glucose (70-99) mg/dl Estimat Average Glucose mg/dl Hemoglobin A1c (4.5-5.6) % Calcium (8.5-10.1) mg/dl Magnesium (1.8-2.4) mg/dl Total Bilirubin (0.2-1) mg/dl AST (15-37) U/L ALT (12-78) U/L Alkaline Phosphatase (45-117) U/L Troponin I < 0.015 (0-0.045) ng/ml Total Protein (6.4-8.2) gm/dl Albumin (3.4-5.0) gm/dl Globulin (2.5-4.0) gm/dl Albumin/Globulin Ratio (0.9-2) Triglycerides (0-150) mg/dl Cholesterol (0-200) mg/dl LDL Cholesterol, Calc mg/dl VLDL Cholesterol, Calc mg/dl HDL Cholesterol mg/dl Cholesterol/HDL Ratio TSH (0.300-4.500) uIu/ml Urine Color Yellow Urine Appearance Clear (Clear) Urine pH 8.5 H (4.5-7.5) Ur Specific Bandy 1.024 (1.000-1.030) Urine Protein Negative (Negative) Urine Glucose (UA) Negative (Negative) Urine Ketones Negative (Negative) Urine Blood Negative (Negative) Urine Nitrite Negative (Negative) Urine Bilirubin Negative (Negative) Urine Urobilinogen Negative (Negative) Ur Leukocyte Esterase Negative (Negative) 03/24/19 03/24/19 Range/Units 10:02 10:02 WBC (4.8-10.8) K/uL RBC (4.7-6.1) M/uL Hgb (14.0-18.0) g/dL Hct (42-52) % MCV (80-100) fL MCH (25-34) pg MCHC (32-36) g/dL RDW Std Deviation (36.4-46.3) fL RDW Coeff of Pete (11.5-14.5) % Plt Count (130-400) K/uL MPV (7.4-10.4) fL Immature Gran % (Auto) % Neut % (Auto) % Lymph % (Auto) % [place] % (Auto) % Eos % (Auto) % Baso % (Auto) % Immature Gran # (Auto) (0.00-0.02) K/uL Neut # (Auto) (1.4-6.5) K/uL Lymph # (Auto) (1.2-3.4) K/uL [place] # (Auto) (0.11-0.59) K/uL Eos # (Auto) (0-0.5) K/uL Baso # (Auto) (0-0.2) K/uL PT 9.7 (9.0-12.0) Seconds INR 0.9 (0.9-1.1) APTT 22.4 (21.0-31.0) Seconds PTT Ratio 0.8 Sodium 141 (136-145) mmol/L Potassium 3.9 (3.5-5.1) mmol/L Chloride 106 (98-107) mmol/L Carbon Dioxide 29 (21-32) mmol/L Anion Gap 6.0 (3-11) BUN 23 H (7-18) mg/dl Creatinine 1.28 (0.6-1.4) mg/dl Est Cr Clr Drug Dosing 42.2 ml/min Est GFR ( Amer) 58.3 Est GFR (Non-Af Amer) 50.3 BUN/Creatinine Ratio 18.1 (10-20) Glucose 131 H (70-99) mg/dl Estimat Average Glucose mg/dl Hemoglobin A1c (4.5-5.6) % Calcium 8.6 (8.5-10.1) mg/dl Magnesium 2.0 (1.8-2.4) mg/dl Total Bilirubin 0.5 (0.2-1) mg/dl AST 11 L (15-37) U/L ALT 15 (12-78) U/L Alkaline Phosphatase 92 (45-117) U/L Troponin I < 0.015 (0-0.045) ng/ml Total Protein 6.3 L (6.4-8.2) gm/dl Albumin 3.2 L (3.4-5.0) gm/dl Globulin 3.1 (2.5-4.0) gm/dl Albumin/Globulin Ratio 1.0 (0.9-2) Triglycerides (0-150) mg/dl Cholesterol (0-200) mg/dl LDL Cholesterol, Calc mg/dl VLDL Cholesterol, Calc mg/dl HDL Cholesterol mg/dl Cholesterol/HDL Ratio TSH 1.510 (0.300-4.500) uIu/ml Urine Color Urine Appearance (Clear) Urine pH (4.5-7.5) Ur Specific [place] (1.000-1.030) Urine Protein (Negative) Urine Glucose (UA) (Negative) Urine Ketones (Negative) Urine Blood (Negative) Urine Nitrite (Negative) Urine Bilirubin (Negative) Urine Urobilinogen (Negative) Ur Leukocyte Esterase (Negative) Medications Administered Current Inpatient Medications Acetaminophen (Tylenol) 650 mg PO Q4H PRN PRN Reason: Pain or Fever Stop: 04/23/19 16:39 Al Hydrox/Mg Hydrox/Simethicone (Maalox) 15 ml PO Q4H PRN PRN Reason: Dyspepsia Stop: 04/23/19 16:39 Atorvastatin Calcium (Lipitor) 20 mg PO DAILY ON LICENSE OF [facility] Stop: 04/24/19 08:59 Enoxaparin Sodium (Lovenox) 40 mg SQ Q24H SHABBIR Stop: 04/23/19 20:59 Last Admin: 03/24/19 20:17 Dose: 40 mg Documented by: Febuxostat (Uloric) 40 mg PO DAILY ON LICENSE OF [facility] Stop: 04/24/19 08:59 Sodium Chloride (Nss 1000ml) 1,000 mls @ 80 mls/hr IV .[id number] ON LICENSE OF [facility] Stop: 03/25/19 15:29 Last Admin: 03/25/19 02:53 Dose: 80 mls/hr Documented by: Loratadine (Claritin) 10 mg PO DAILY ON LICENSE OF [facility] Stop: 04/24/19 08:59 Magnesium Hydroxide (Milk Of Magnesia) 30 ml PO Q12H PRN PRN Reason: Constipation Stop: 04/23/19 16:39 Magnesium Oxide (Mag-Ox) 400 mg PO DAILY ON LICENSE OF [facility] Stop: 04/24/19 08:59 Metoprolol Succinate (Toprol Xl) 25 mg PO DAILY ON LICENSE OF [facility] Stop: 04/24/19 08:59 Ondansetron HCl (Zofran) 4 mg IV Q6H PRN PRN Reason: Nausea Stop: 04/23/19 16:39 Pantoprazole Sodium (Protonix) 40 mg PO BID ON LICENSE OF [facility]; Protocol Stop: 04/23/19 20:59 Last Admin: 03/24/19 20:19 Dose: 40 mg Documented by: Polyethylene Glycol (Miralax Powder Packet) 17 gm PO DAILY PRN PRN Reason: Constipation Stop: 04/23/19 16:39 Vitamin D (Vitamin D3) 5,000 units PO DAILY ON LICENSE OF [facility] Stop: 04/24/19 08:59 (1) Anemia Anemia type: unspecified type Qualified Code(s): D64.9 - Anemia, unspecified
[2019-03-25] MEDS: ATORVASTATIN 20 MG TAB PO SCH (08:08)
[2019-03-25] MEDS: MAGNESIUM OXIDE 400 MG TAB PO SCH (08:08)
[2019-03-25] MEDS: LORATADINE 10 MG TAB PO SCH (08:08)
[2019-03-25] MEDS: PANTOprazole 40 MG TAB PO SCH ×2 (08:09→21:02)
[2019-03-25] MEDS: CHOLECALCIFEROL 1,000 UNITS 25 MCG TAB PO SCH (08:09)
[2019-03-25] MEDS: METOPROLOL SUCC 25MG EXT REL TAB PO SCH (08:09)
[2019-03-25] MEDS: FEBUXOSTAT 40 MG TABLET PO SCH (08:09)
--- NOTE | 2019-03-25 09:18 | XCELERA ---
[id number] \\[email or web address]_[email or web address]\[id number]
[2019-03-25] MEDS ORDERED: LORazepam 0.5 MG TAB PO STA (09:58)
--- NOTE | 2019-03-25 12:04 | Magnetic Resonance Report ---
MR brain wo con CLINICAL HISTORY: 88 years-old Male presenting with Dizziness, r/o cerebellar cva. TECHNIQUE: Multisequence, multiplanar MR imaging of the brain was performed without the use of intrav enous contrast. IV contrast: None. COMPARISON: Noncontrast CT head 03/24/2019. FINDINGS: Localizer images: Unremarkable. Bone marrow signal intensity within the calvarium within normal limits. Normal midline sagittal structures. Proportional ventricular and sulcal prominence, likely age-relate d parenchymal volume loss. No mass effect or midline shift. No restricted diffusion or hemorrhage. Br ain parenchyma normal in appearance with preserved wild-white differentiation. No extra-axial fluid collection. T2 skull base flow voids preserved. IMPRESSION: 1. No acute intracranial abnormality. ACT 112: Negative or not required by law. Electronically signed by: Ricky Goss M.D. 03/25/2019 12:03 PM
[2019-03-25] MEDS: ENOXAPARIN INJ 40 MG/0.4 ML SYR SQ SCH (21:03)
[2019-03-26 07:08] LABS: Hematocrit (blood only) 30.7 % (42-52); Hemoglobin 10.2 g/dL (14.0-18.0); Mean Corpuscular Hemoglobin 30.9 pg (25-34); Mean Corpuscular Hgb Conc 33.2 g/dL (32-36); Mean Platelet Volume 9.4 fL (7.4-10.4); Platelet Count 141 K/uL (130-400); RDW Coefficient of Variation 14.6 % (11.5-14.5); White Blood Count 4.98 K/uL (4.8-10.8)
[2019-03-26 07:35] LABS: Calcium 8.6 mg/dl (8.5-10.1); Creatinine Clr Calc Pharmacy 38.9 ml/min; Est GFR (African American) 61.2; Est GFR (Non-African American) 52.8; Potassium 4.2 mmol/L (3.5-5.1)
[2019-03-26] MEDS: METOPROLOL SUCC 25MG EXT REL TAB PO SCH ×2 (08:25→21:06)
[2019-03-26] MEDS: FEBUXOSTAT 40 MG TABLET PO SCH (08:25)
[2019-03-26] MEDS: CHOLECALCIFEROL 1,000 UNITS 25 MCG TAB PO SCH (08:25)
[2019-03-26] MEDS: ATORVASTATIN 20 MG TAB PO SCH (08:25)
[2019-03-26] MEDS: MAGNESIUM OXIDE 400 MG TAB PO SCH (08:25)
[2019-03-26] MEDS: LORATADINE 10 MG TAB PO SCH (08:26)
[2019-03-26] MEDS: PANTOprazole 40 MG TAB PO SCH ×2 (08:26→21:05)
[2019-03-26] MEDS ORDERED: Nursing to Pharmacy Communication ONE (08:30)
[2019-03-26] MEDS ORDERED: IBUPROFEN 200 MG TAB PO STA (15:05)
[2019-03-26] MEDS ORDERED: IBUPROFEN 200 MG TAB PO PRN (17:15)
[2019-03-26] MEDS ORDERED: HYDROmorphone INJ 0.5 MG/0.5 ML SYR ONE (17:50)
--- NOTE | 2019-03-26 19:12 | Hospitalist Progress Note ---
Date of Service March 26, 2019 Assessment & Plan (1) Multiple falls: (2) Dizziness: This is an 88-year-old [place] male who has significant past medical history of CAD, chronic diastolic CHF, HTN, HLD, gouty arthropathy, CKD stage III, GERD, anxiety who presents to ED secondary to dizziness that started at approximately 6:30 AM. In ED patient remained hemodynamically stable. His orthostatics were negative for orthostatic hypotension. Lab work revealed stable H&H 11.2 and 33.3, WBC 5.75, platelet 172, mild elevation BUN/creatinine 23 and 1.28, electrolytes WNL, glucose 131, troponin WNL, TSH WNL. Urinalysis negative for infection. He underwent numerous imaging studies including chest and neck CTA. Study was negative for PE, mild ectasia of the ascending thoracic aorta 3.6 cm but otherwise normal. Cardiomegaly. Neck CTA revealed 1.3 cm right lobe thyroid nodule but otherwise unremarkable CT angiogram. Head CT negative for acute abnormality. Cervical spine CT revealed 9 mm right-sided thyroid nodule along with 3 mm of anterior listhesis of C7 on T1 likely degenerative with advanced multilevel degenerative changes. Dizziness and lightheadedness possibly 2/2 to over diuresis and mild dehydration, vertigo, cerebellar lesion, cervical radiculopathy admitted to telemetry obtained MRI - r/o cerebellar lesion - negative for any acute process consult PT/OT - recommend return home, home PT IVF 80cc/hr - stop IVF today, rechecked his orthostatic vital signs - negative, therefore stopped fluids hold lasix for now - reassess volume status daily troponin- negative, and monitor on tele Echo - Called patient's daughter yesterday (03/25/2019), she is concerned that patient has not been sleeping well for past couple of weeks, possibly depressed because of his 's stroke recently, playing online video games at night, not sleeping, only gets 2 to 3 hours of sleep. More recently also she noticed that he made mistakes with directions, called her wrong names,( she is the only daughter), also would confabulate stories. This was discussed with his PCP, who recommended to sleep 7 to 8 hours a day. (3) Neck pain: CT neck reveals: There are advanced multilevel degenerative changes. 3 mm of anterolisthesis of C7 on T1 is felt to be degenerative IMPRESSION: No evidence of acute fracture or traumatic subluxation. Pain likely 2/2 to DDD, muscle tension (left paraspinal tenderness to palpation) heat TID, tylenol, advil prn PT/OT consulted (4) CAD (coronary artery disease): no CP or SOB continue statin and metoprolol troponin negative, ecg no ST t wave changes (5) Diastolic CHF: compensated daily weights, strict I and O heart healthy diet continue metoprolol, hold lasix re assess volume status daily (6) Hypertension: blood pressure stable, orthostatics negative continue metoprolol but hold furosemide (7) HLD (hyperlipidemia): continue statin (8) CKD (chronic kidney disease) stage 3, GFR 30-59 ml/min: baseline Cr 1.2 bun/cr 23 and 1.28 pt clinically appears on dry side give cautious IVF 80cc/hr - stopped IVF current Cr down to 1.07, weight thus AM does not correlate, will need to re- check hold lasix for now (9) Anemia: H/H stable at 11.2/33.3 monitor (10) Gout: continue uloric (11) DVT prophylaxis: lovenox Disposition: admit to telemetry, case management consulted Follow up: PCP Dr. [place] upon discharge Admission and Anticipated Discharge Date Admission Date: March 26, 2019 Subjective Patient lying in bed, in no acute distress. Denies any fevers, chills, chest pain or shortness of breath, abdominal pain, nausea or vomiting. Also denies any more dizziness and is eager to be discharged home. Pt was evaluated by PT, recommend return home, home PT. Discussed this with the pt who is agreeable to home PT. Given his likely underlying dementia and safety concerns expressed by his daughter (see below), discussed other possible placement options and involved CM. Pt is not interested to be anywhere else but home. Only few minutes after I saw the pt, the pt changed his mind and now wants to stay another night in the hospital. Now he says that he has neck pain. Complains of tight neck muscle and says that it is better than when he first came to the hospital. Explained to him results of CT scan he had in the ED and that he can take tylenol, advil, use heating pads, gentle stretching exercises etc. Explained that he does not need to stay in hospital for that. Then he said that he thinks he is still dizzy when ge gets up from bed. Discussion with the pt tends to change and he is not consistent with his answers. Called pt's daughter again today (03/26) and updated her on current results and situation. She says that she is not surprised and that lately she had to travel back and forth to assist her parents frequently. She hopes they can eventually move closer to her. Says she has to drive about 6 hrs to get here. She plans to call her father and discuss with him discharge, home health, further doctor's follow ups. She says that likely she will drive to [place] tomorrow to assist her father. Communication with family yesterday (03/25) Called his daughter, at . She resides in [place]. She was able to provide me more history, says that patient has been more restless, could not sleep, spends a lot of time playing video games. Says that since his had a stroke, he became more depressed. More recently he also had more falls and could not remember his daughter's name, or made mistakes with directions. She also says that lately he has been saying different stories, for example when asked about what happened to his , he would always say some different story. She mentioned it to his PCP at the last visit, his primary care doctor told him that he needs to sleep more than 2 to 3 hours, and advised him to sleep about 7 hours a day. Patient seems to be very stubborn and the kept telling the PCP that he only needs 2 to 3 hours of sleep. Daughter thinks that pt is addicted to online games/ feels depressed about his , says that besides his , he does not have much of social support here in the [place]. Review of Systems Review of Systems: All systems reviewed & are unremarkable except as noted in HPI & below Constitutional: no fever and no chills Respiratory: no cough and no dyspnea Cardiovascular: no chest pain and no palpitations Gastrointestinal: no abdominal pain, no nausea and no vomiting Physical Exam Physical Exam: Constitutional: WD/WN, elderly, [place], male, in NAD, sitting up in bed Head: Normocephalic, Atraumatic, very hard of hearing Eyes: PERRL, EOMI, conjunctivae normal, anicteric sclerae ENMT: external ear and nose normal, oropharynx normal Neck/back: normal visual inspection, left paraspinal tenderness to palp. at cervical region, full ROM Respiratory: normal respiratory effort, lungs clear to auscultation, no wheeze, rales, rhonchi. Normal insp/exp effort, no accessory muscle use Cardiovascular: RRR, 2/6 FREDA noted best RUSB, no edema Vessels: no JVD or carotid bruit Chest: normal inspection of chest Abdomen: normal bowel sounds, soft, nontender, nondistended Musculoskeletal: no cyanosis or clubbing, extremities motor strength 5/5 Skin: no rashes, warm ,dry Neurologic: PERRL, EOMI, accommodation nl, no face palsy, no dysarthria CN's II-XI intact bilaterally and moves all extremities Psychiatric: A+Ox3, euthymic affect Results & Data ([facility]) Vital Signs (Past 12 Hours) Vital Signs Temp Pulse Pulse Resp BP BP Pulse Ox 03/26/19 16:16 76 03/26/19 15:37 37.0 C 77 18 147/83 H 98 03/26/19 11:47 36.5 C 75 18 126/68 98 03/26/19 07:27 36.8 C 69 20 145/72 H 95 03/26/19 07:23 36.8 C 69 18 148/77 H 97 03/26/19 07:14 63 Laboratory Results 03/26/19 03/26/19 Range/Units 06:50 06:50 WBC 4.98 (4.8-10.8) K/uL RBC 3.30 L (4.7-6.1) M/uL Hgb 10.2 L (14.0-18.0) g/dL Hct 30.7 L (42-52) % MCV 93.0 (80-100) fL MCH 30.9 (25-34) pg MCHC 33.2 (32-36) g/dL RDW Std Deviation 50.0 H (36.4-46.3) fL RDW Coeff of Pete 14.6 H (11.5-14.5) % Plt Count 141 (130-400) K/uL MPV 9.4 (7.4-10.4) fL Sodium 142 (136-145) mmol/L Potassium 4.2 (3.5-5.1) mmol/L Chloride 111 H (98-107) mmol/L Carbon Dioxide 28 (21-32) mmol/L Anion Gap 4.0 (3-11) BUN 16 (7-18) mg/dl Creatinine 1.23 (0.6-1.4) mg/dl Est Cr Clr Drug Dosing 38.9 ml/min Est GFR ( Amer) 61.2 Est GFR (Non-Af Amer) 52.8 Fasting Glucose 101 H (70-99) mg/dl Calcium 8.6 (8.5-10.1) mg/dl Magnesium 2.0 (1.8-2.4) mg/dl Medications Administered Current Inpatient Medications Acetaminophen (Tylenol) 650 mg PO Q4H PRN PRN Reason: Pain or Fever Stop: 04/23/19 16:39 Al Hydrox/Mg Hydrox/Simethicone (Maalox) 15 ml PO Q4H PRN PRN Reason: Dyspepsia Stop: 04/23/19 16:39 Atorvastatin Calcium (Lipitor) 20 mg PO DAILY [facility] Stop: 04/24/19 08:59 Last Admin: 03/26/19 08:25 Dose: 20 mg Documented by: Enoxaparin Sodium (Lovenox) 40 mg SQ Q24H [facility] Stop: 04/23/19 20:59 Last Admin: 03/25/19 21:03 Dose: 40 mg Documented by: Febuxostat (Uloric) 40 mg PO DAILY [facility] Stop: 04/24/19 08:59 Last Admin: 03/26/19 08:25 Dose: 40 mg Documented by: Ibuprofen (Advil) 200 mg PO Q4H PRN PRN Reason: Mild Pain Stop: 04/25/19 17:14 Loratadine (Claritin) 10 mg PO DAILY [facility] Stop: 04/24/19 08:59 Last Admin: 03/26/19 08:26 Dose: 10 mg Documented by: Magnesium Hydroxide (Milk Of Magnesia) 30 ml PO Q12H PRN PRN Reason: Constipation Stop: 04/23/19 16:39 Magnesium Oxide (Mag-Ox) 400 mg PO DAILY [facility] Stop: 04/24/19 08:59 Last Admin: 03/26/19 08:25 Dose: 400 mg Documented by: Metoprolol Succinate (Toprol Xl) 25 mg PO HS [facility] Stop: 04/24/19 08:59 Ondansetron HCl (Zofran) 4 mg IV Q6H PRN PRN Reason: Nausea Stop: 04/23/19 16:39 Pantoprazole Sodium (Protonix) 40 mg PO BID [facility]; Protocol Stop: 04/23/19 20:59 Last Admin: 03/26/19 08:26 Dose: 40 mg Documented by: Polyethylene Glycol (Miralax Powder Packet) 17 gm PO DAILY PRN PRN Reason: Constipation Stop: 04/23/19 16:39 Vitamin D (Vitamin D3) 5,000 units PO DAILY [facility] Stop: 04/24/19 08:59 Last Admin: 03/26/19 08:25 Dose: 5,000 units Documented by: (1) Anemia Anemia type: unspecified type Qualified Code(s): D64.9 - Anemia, unspecified
[2019-03-26] MEDS: ENOXAPARIN INJ 40 MG/0.4 ML SYR SQ SCH (21:05)
[2019-03-27 06:05] LABS: Hematocrit (blood only) 32.2 % (42-52); Hemoglobin 10.5 g/dL (14.0-18.0); Mean Corpuscular Hgb Conc 32.6 g/dL (32-36); Mean Platelet Volume 9.6 fL (7.4-10.4); Platelet Count 132 K/uL (130-400); RDW Coefficient of Variation 14.7 % (11.5-14.5); RDW Standard Deviation 50.4 fL (36.4-46.3); Red Blood Count 3.39 M/uL (4.7-6.1); White Blood Count 3.98 K/uL (4.8-10.8)
[2019-03-27 06:35] LABS: BUN Creatinine Ratio 15.2 (10-20); Creatinine Clr Calc Pharmacy 36.3 ml/min; Est GFR (African American) 56.2; Est GFR (Non-African American) 48.5; Magnesium 1.9 mg/dl (1.8-2.4); Potassium 4.2 mmol/L (3.5-5.1)
[2019-03-27 06:36] LABS: Phosphorus 3.2 mg/dl (2.5-4.9)
[2019-03-27] MEDS: PANTOprazole 40 MG TAB PO SCH ×2 (08:29→20:46)
[2019-03-27] MEDS: FEBUXOSTAT 40 MG TABLET PO SCH (08:29)
[2019-03-27] MEDS: LORATADINE 10 MG TAB PO SCH (08:29)
[2019-03-27] MEDS: ATORVASTATIN 20 MG TAB PO SCH (08:30)
[2019-03-27] MEDS: MAGNESIUM OXIDE 400 MG TAB PO SCH (08:30)
[2019-03-27] MEDS: CHOLECALCIFEROL 1,000 UNITS 25 MCG TAB PO SCH (08:30)
[2019-03-27] MEDS ORDERED: MAGNESIUM SULFATE / D5W 1 GM/100 ML BAG IV ONE (10:00)
[2019-03-27] MEDS: METOPROLOL SUCC 25MG EXT REL TAB PO SCH (19:42)
[2019-03-27] MEDS: ENOXAPARIN INJ 40 MG/0.4 ML SYR SQ SCH (20:46)
[2019-03-27] MEDS ORDERED: FUROSEMIDE 40 MG TAB PO STA (21:09)
[2019-03-28 06:22] LABS: Calcium 8.8 mg/dl (8.5-10.1); Creatinine Clr Calc Pharmacy 35.7 ml/min; Est GFR (African American) 55.2; Est GFR (Non-African American) 47.6; Potassium 3.9 mmol/L (3.5-5.1)
[2019-03-28] MEDS: ATORVASTATIN 20 MG TAB PO SCH (08:07)
[2019-03-28] MEDS: MAGNESIUM OXIDE 400 MG TAB PO SCH (08:07)
[2019-03-28] MEDS: CHOLECALCIFEROL 1,000 UNITS 25 MCG TAB PO SCH (08:08)
[2019-03-28] MEDS: FEBUXOSTAT 40 MG TABLET PO SCH (08:08)
[2019-03-28] MEDS: PANTOprazole 40 MG TAB PO SCH (08:08)
[2019-03-28] MEDS: LORATADINE 10 MG TAB PO SCH (08:09)
--- NOTE | 2019-03-28 12:10 | Hospitalist Progress Note ---
Date of Service March 27, 2019 Assessment & Plan (1) Multiple falls: (2) Dizziness: This is an 88-year-old Azer[place] male who has significant past medical history of CAD, chronic diastolic CHF, HTN, HLD, gouty arthropathy, CKD stage III, GERD, anxiety who presents to ED secondary to dizziness that started at approximately 6:30 AM. In ED patient remained hemodynamically stable. His orthostatics were negative for orthostatic hypotension. Lab work revealed stable H&H 11.2 and 33.3, WBC 5.75, platelet 172, mild elevation BUN/creatinine 23 and 1.28, electrolytes WNL, glucose 131, troponin WNL, TSH WNL. Urinalysis negative for infection. He underwent numerous imaging studies including chest and neck CTA. Study was negative for PE, mild ectasia of the ascending thoracic aorta 3.6 cm but otherwise normal. Cardiomegaly. Neck CTA revealed 1.3 cm right lobe thyroid nodule but otherwise unremarkable CT angiogram. Head CT negative for acute abnormality. Cervical spine CT revealed 9 mm right-sided thyroid nodule along with 3 mm of anterior listhesis of C7 on T1 likely degenerative with advanced multilevel degenerative changes. Dizziness and lightheadedness possibly 2/2 to over diuresis and mild dehydration, vertigo, cerebellar lesion, cervical radiculopathy Admitted to telemetry Obtained MRI - r/o cerebellar lesion - negative for any acute process Consulted PT/OT - recommend return home, home PT IVF 80cc/hr - on admission, rechecked his orthostatic vital signs - negative, therefore stopped fluids hold lasix for now - reassess volume status daily troponin- negative, and monitor on tele Echo - EF 60-65%, mild concentric LVH, LV systolic function is normal, moderate AV sclerosis without significant Called patient's daughter multiple times, she is concerned that patient has not been sleeping well for past couple of weeks, possibly depressed because of his 's stroke recently, playing online video games at night, not sleeping, only gets 2 to 3 hours of sleep. More recently also she noticed that he made mistakes with directions, called her wrong names,( she is the only daughter), also would confabulate stories. This was discussed with his PCP, who recommended to sleep 7 to 8 hours a day. (3) Neck pain: CT neck reveals: There are advanced multilevel degenerative changes. 3 mm of anterolisthesis of C7 on T1 is felt to be degenerative IMPRESSION: No evidence of acute fracture or traumatic subluxation. Pain likely 2/2 to DDD, muscle tension (left paraspinal tenderness to palpation) heat TID, tylenol, advil prn PT/OT consulted (4) CAD (coronary artery disease): no CP or SOB continue statin and metoprolol troponin negative, ecg no ST t wave changes (5) Diastolic CHF: compensated daily weights, strict I and O heart healthy diet continue metoprolol, hold lasix re assess volume status daily (6) Hypertension: blood pressure stable, orthostatics negative continue metoprolol but hold furosemide (7) HLD (hyperlipidemia): continue statin (8) CKD (chronic kidney disease) stage 3, GFR 30-59 ml/min: baseline Cr 1.2 bun/cr 23 and 1.28 pt clinically appears on dry side give cautious IVF 80cc/hr - stopped IVF current Cr down to 1.07 will resume lasix daily - pt will need to check his weight at home and follow up as outpt (9) Anemia: H/H stable at 11.2/33.3 monitor (10) Gout: continue uloric (11) DVT prophylaxis: lovenox Disposition: admit to telemetry, case management consulted Follow up: PCP Dr. [place] upon discharge Admission and Anticipated Discharge Date Admission Date: March 26, 2019 Subjective Patient is walking in hallways, using a walker, in no acute distress. Denies any fevers, chills, chest pain or shortness of breath, abdominal pain, nausea or vomiting. Also says that he feels much better. Denies any headache, chest pain, shortness of breath, abd. pain, nausea or vomiting. Denies dizziness. Pt was evaluated by PT, recommend return home, home PT. Discussed this with the pt who was agreeable to home PT but then he changed his mind and wanted to be evaluated for rehab/snf. Contacted PRAVIN again who came to discuss all the options for the pt again. I also contacted pt's daughter today. Unfortunately not able to come today and see her father as she does not feel well. Update: Contacted by PRAVIN that pt does not qualify for other options but home hea lth, pt agreeable. Review of Systems Review of Systems: All systems reviewed & are unremarkable except as noted in HPI & below Constitutional: no fever and no chills Respiratory: no cough and no dyspnea Cardiovascular: no chest pain and no palpitations Gastrointestinal: no abdominal pain, no nausea and no vomiting Physical Exam Physical Exam: Constitutional: WD/WN, elderly, [place], male, in NAD, sitting up in bed Head: Normocephalic, Atraumatic, very hard of hearing Eyes: PERRL, EOMI, conjunctivae normal, anicteric sclerae ENMT: external ear and nose normal, oropharynx normal Neck/back: normal visual inspection, left paraspinal tenderness to palp. at cervical region, full ROM Respiratory: normal respiratory effort, lungs clear to auscultation, no wheeze, rales, rhonchi. Normal insp/exp effort, no accessory muscle use Cardiovascular: RRR, 2/6 FREDA noted best RUSB, no edema Vessels: no JVD or carotid bruit Chest: normal inspection of chest Abdomen: normal bowel sounds, soft, nontender, nondistended Musculoskeletal: no cyanosis or clubbing, extremities motor strength 5/5 Skin: no rashes, warm ,dry Neurologic: PERRL, EOMI, accommodation nl, no face palsy, no dysarthria CN's II-XI intact bilaterally and moves all extremities Psychiatric: A+Ox3, euthymic affect Results & Data ([facility]) Vital Signs (Past 12 Hours) reviewed Laboratory Results reviewed Diagnostic Findings reviewed Medications Administered reviewed (1) Anemia Anemia type: unspecified type Qualified Code(s): D64.9 - Anemia, unspecified
--- NOTE | 2019-03-28 12:11 | Discharge Summary ---
Date of Service March 28, 2019 Admission HPI Per Admitting Provider This is an 88-year-old [place] male who has significant past medical history of CAD, chronic diastolic CHF, HTN, HLD, gouty arthropathy, CKD stage III, GERD, anxiety who presents to ED secondary to dizziness that started at approximately 6:30 AM. He elicits that he woke up around 6 AM feeling very well. When he was in the bathroom around 6:30 AM he began to feel significantly unwell. He felt very dizzy, weak legs and feeling like he could pass out. He denies dizzy sensation feeling like vertigo or spinning sensation. He does admit to feeling like he could pass out and weak at the legs. He admits over the past 2 to 3 weeks he has had approximately 3 falls. First fall he fell and struck head above the eyebrow of his right eye, second fall he fell on his left hip and third fall was on his buttock. Denies any injury from the fall. Over the past 2 to 3 weeks he has been very unsteady and feeling off balance. Also over the past 2 to 3 weeks he has been complaining of significant neck pain and decreased mobility of neck. He did see PCP regarding neck symptoms in which x-ray was performed which showed severe advanced degenerative cervical DDD. He denies any pain in arms or numbness and tingling. With episode of dizziness this morning he denies any associated chest pain, shortness of breath, palpitation, diaphoresis, nausea or vomiting. Unfortunately his is currently hospitalized at [facility] secondary to severe stroke and he is currently residing at [facility] by himself. He feels he is eating and drinking appropriately and taking medications as prescribed. He denies any recent illness, fever, chills, sweats, URI symptoms, cough, nausea, vomiting, abdominal pain, dysuria, increased urgency or frequency with urination, melena, hematochezia. Denies ever having similar symptoms in the past. In ED patient remained hemodynamically stable. His orthostatics were negative for orthostatic hypotension. Lab work revealed stable H&H 11.2 and 33.3, WBC 5.75, platelet 172, mild elevation BUN/creatinine 23 and 1.28, electrolytes WNL, glucose 131, troponin WNL, TSH WNL. Urinalysis negative for infection. He underwent numerous imaging studies including chest and neck CTA. Study was negative for PE, mild ectasia of the ascending thoracic aorta 3.6 cm but otherwise normal. Cardiomegaly. Neck CTA revealed 1.3 cm right lobe thyroid nodule but otherwise unremarkable CT angiogram. Head CT negative for acute abnormality. Cervical spine CT revealed 9 mm right-sided thyroid nodule along with 3 mm of anterior listhesis of C7 on T1 likely degenerative with advanced multilevel degenerative changes. Admission Exam Per Admitting Provider Constitutional: WD/WN, elderly, [place], male, vitals as above, NAD, sitting up in bed, pleasant, conversing easily Head: Normocephalic, Atraumatic, very hard of hearing Eyes: PERRL, conjunctivae normal, anicteric sclerae ENMT: external ear and nose normal, TMs visualized and normal, external ear canal with mild wax but no impaction, oropharynx normal Neck: trachea midline, no thyromegaly normal visual inspection Respiratory: normal respiratory effort, lungs clear to auscultation, no wheeze, rales, rhonchi. Normal insp/exp effort, no accessory muscle use Cardiovascular: RRR, 2/6 FREDA noted best RUSB, no edema Vessels: no JVD or carotid bruit Chest: normal inspection of chest Abdomen: normal bowel sounds, soft, nontender, no hepatosplenomegaly Musculoskeletal: no cyanosis or clubbing, extremities motor strength 5/5 Skin: no rashes, bilateral lower extremity icthyosis, skin thin, dry, moderate turgor Neurologic: PERRL, EOMI, accommodation nl, no face palsy, no dysarthria CN's II-XI intact bilaterally and moves all extremities Psychiatric: A+Ox3, euthymic affect Lymphatic: no cervical or axillary lymphadenopathy Principal Diagnosis falls, lightheadedness,weakness, neck pain, dehydration Discharge Exam Constitutional: WD/WN, elderly, Cuban, male, in NAD, sitting up in bed Head: Normocephalic, Atraumatic, very hard of hearing Eyes: PERRL, EOMI, conjunctivae normal, anicteric sclerae ENMT: external ear and nose normal, oropharynx normal Neck/back: normal visual inspection, left paraspinal tenderness to palp. at cervical region, full ROM Respiratory: normal respiratory effort, lungs clear to auscultation, no wheeze, rales, rhonchi. Normal insp/exp effort, no accessory muscle use Cardiovascular: RRR, 2/6 FREDA noted best RUSB, no edema Vessels: no JVD or carotid bruit Chest: normal inspection of chest Abdomen: normal bowel sounds, soft, nontender, nondistended Musculoskeletal: no cyanosis or clubbing, extremities motor strength 5/5 Skin: no rashes, warm ,dry Neurologic: PERRL, EOMI, accommodation nl, no face palsy, no dysarthria CN's II-XI intact bilaterally and moves all extremities Psychiatric: A+Ox3, euthymic affect Discharge Data Allergies Allergy/AdvReac Type Severity Reaction Status Date / Time adhesive Allergy Unknown SOME TAPE Verified 03/24/19 10:21 YRS AGO-REDNESS, RASH allopurinol Allergy Unknown HIVES-pt Verified 03/24/19 10:21 not aware Consultations 03/24/19 13:24 ED Decision to Admit Stat 03/24/19 16:40 Consult Case Management - Discharge Planning Routine Ordered Studies 03/24/19 09:54 CT cervical spine wo con Stat FINDINGS: There is a 9 mm right-sided thyroid nodule. No further follow-up is indicated given the patient's age. No pneumothorax is evident. The prevertebral soft tissues are normal. No fractures or traumatic subluxations are visualized. There are advanced multilevel degenerative changes. 3 mm of anterolisthesis of C7 on T1 is felt to be degenerative IMPRESSION: No evidence of acute fracture or traumatic subluxation. CT head/brain wo con Stat FINDINGS: No acute intracranial hemorrhage, midline shift, intracranial mass, hydrocephalus, territorial ischemia or abnormal extra-axial collection. Mild age-related involutional changes. Cerebral vascular calcifications are noted. Senescent calcifications of the right lentiform nucleus. The calvarium is intact. 6 mm left anterior frontal bone osteoma. The paranasal sinuses, mastoid air cells, and middle ear cavities are clear. IMPRESSION: No acute intracranial abnormality or calvarial fracture. 03/24/19 12:30 CT angio chest PE protocol Stat IMPRESSION: 1. There is no evidence of pulmonary embolus in the main, lobar, or segmental pulmonary arteries. 2. There is mild ectasia of the ascending thoracic aorta which measures up to 3.6 cm. The thoracic aorta is otherwise normal in caliber. No dissection is seen. 3. Cardiomegaly. 4. There is no airspace consolidation or pleural effusion. 5. Cholelithiasis. 6. A large calcified pleural plaque is seen at the right lung base. CT angio neck with con Stat IMPRESSION: Unremarkable CT angiogram of the neck. 03/25/19 14:17 MR brain wo con Routine FINDINGS: Localizer images: Unremarkable. Bone marrow signal intensity within the calvarium within normal limits. Normal midline sagittal structures. Proportional ventricular and sulcal prominence, likely age-related parenchymal volume loss. No mass effect or midline shift. No restricted diffusion or hemorrhage. Brain parenchyma normal in appearance with preserved wild-white differentiation. No extra-axial fluid collection. T2 skull base flow voids preserved. IMPRESSION: 1. No acute intracranial abnormality. Hospital Course (1) Multiple falls: (2) Dizziness: This is an 88-year-old [place] male who has significant past medical history of CAD, chronic diastolic CHF, HTN, HLD, gouty arthropathy, CKD stage III, GERD, anxiety who presents to ED secondary to dizziness that started at approximately 6:30 AM. In ED patient remained hemodynamically stable. His orthostatics were negative for orthostatic hypotension. Lab work revealed stable H&H 11.2 and 33.3, WBC 5.75, platelet 172, mild elevation BUN/creatinine 23 and 1.28, electrolytes WNL, glucose 131, troponin WNL, TSH WNL. Urinalysis negative for infection. He underwent numerous imaging studies including chest and neck CTA. Study was negative for PE, mild ectasia of the ascending thoracic aorta 3.6 cm but otherwise normal. Cardiomegaly. Neck CTA revealed 1.3 cm right lobe thyroid nodule but otherwise unremarkable CT angiogram. Head CT negative for acute abnormality. Cervical spine CT revealed 9 mm right-sided thyroid nodule along with 3 mm of anterior listhesis of C7 on T1 likely degenerative with advanced multilevel degenerative changes. Dizziness and lightheadedness possibly 2/2 to over diuresis and mild dehydration, vertigo, cerebellar lesion, cervical radiculopathy Admitted to telemetry Obtained MRI - r/o cerebellar lesion - negative for any acute process Consulted PT/OT - recommend return home, home PT IVF 80cc/hr - on admission, rechecked his orthostatic vital signs - negative, therefore stopped fluids hold lasix for now - reassess volume status daily troponin- negative, and monitor on tele Echo - EF 60-65%, mild concentric LVH, LV systolic function is normal, moderate AV sclerosis without significant Called patient's daughter multiple times, she is concerned that patient has not been sleeping well for past couple of weeks, possibly depressed because of his 's stroke recently, playing online video games at night, not sleeping, only gets 2 to 3 hours of sleep. More recently also she noticed that he made mistakes with directions, called her wrong names,( she is the only daughter), also would confabulate stories. This was discussed with his PCP, who recommended to sleep 7 to 8 hours a day. (3) Neck pain: CT neck reveals: There are advanced multilevel degenerative changes. 3 mm of anterolisthesis of C7 on T1 is felt to be degenerative IMPRESSION: No evidence of acute fracture or traumatic subluxation. Pain likely 2/2 to DDD, muscle tension (left paraspinal tenderness to palpation) heat TID, tylenol, advil prn PT/OT consulted (4) CAD (coronary artery disease): no CP or SOB continue statin and metoprolol troponin negative, ecg no ST t wave changes (5) Diastolic CHF: compensated daily weights, strict I and O heart healthy diet continue metoprolol, hold lasix re assess volume status daily (6) Hypertension: blood pressure stable, orthostatics negative continue metoprolol but hold furosemide (7) HLD (hyperlipidemia): continue statin (8) CKD (chronic kidney disease) stage 3, GFR 30-59 ml/min: baseline Cr 1.2 bun/cr 23 and 1.28 pt clinically appears on dry side give cautious IVF 80cc/hr - stopped IVF current Cr down to 1.07 will resume lasix daily - pt will need to check his weight at home and follow up as outpt (9) Anemia: H/H stable at 11.2/33.3 monitor (10) Gout: continue uloric (11) DVT prophylaxis: lovenox Disposition: admit to telemetry, case management consulted Follow up: PCP Dr. Colorado upon discharge Total Time Total Time Spent Total Time Spent (In Minutes): 40 Total Time Includes: Examination of the Patient, Discharge Planning and Medication Reconciliation Discharge Plan Discharge Items Patient Disposition: Home - Home Health Services Reason For Visit: FALLS,LIGHTHEADEDNESS,NECK PAIN Discharge Diagnosis: falls, lightheadedness,weakness, neck pain, dehydration Activity: As commented below Activity Comment: as tolerated, pace yourself/ home PT Non-emergency contact: Primary Care Provider Call non-emergency contact if: you have any medication questions and your symptoms worsen Follow-up/Referrals: Adeola Colorado MD [Primary Care Provider] - 04/01/19 1:00 pm (Please arrive for you appointment 15 minutes early at 12:45pm at the [facility]. If you need to change this appointment, please call [phone].) Diet: Heart Healthy Addtl Attending Provider Instructions: Follow up with your primary care doctor in 1 week. Get up from laying or sitting position slowly. If you feel lightheaded or weak, make sure to sit back down. Home health was set up for you, follow instructions per physical therapist. Check your blood pressure at home and keep a log of these numbers. Make sure to bring this log to your primary doctor, so medications can be adjusted as needed. Weigh yourself daily (in the morning, before breakfast and after you use the bathroom), and keep a log of these numbers as well. Make sure to bring this log to your primary care doctor, so he is aware about any weight fluctuations. Take furosemide 40 mg in the morning. Do not take any furosemide in the afternoon, until you see your primary care doctor. Make sure to get enough sleep, you should sleep about 7-8 hrs every night. Pending Studies at Discharge: No Stand-Alone Forms: My [facility], Smoking Cessation Medications and DC Order Prescriptions: Continued atorvastatin 20 mg Tablet 20 mg PO DAILY RF: 0 cholecalciferol (vitamin D3) [Vitamin D3] 5,000 unit Tablet 5,000 unit PO DAILY RF: 0 loratadine 10 mg Tablet 10 mg PO DAILY RF: 0 magnesium oxide 400 mg magnesium Tablet 400 mg PO DAILY RF: 0 omeprazole 20 mg Capsule,Delayed Release(Dr/Ec) 20 mg PO BID RF: 0 potassium chloride 10 mEq Tablet Extended Release 10 meq PO DAILY RF: 0 febuxostat [Uloric] 40 mg Tablet 40 mg PO DAILY RF: 0 metoprolol succinate [Toprol XL] 25 mg tablet extended release 24 hr 25 mg PO DAILY RF: 0 silver sulfadiazine [SSD] 1 % Cream 1 applic TOPICAL DAILY RF: 0 Changed furosemide 40 mg Tablet 40 mg PO QAM Qty: 0 RF: 0 Discontinued furosemide 40 mg Tablet 40 mg PO DAILYBD RF: 0 Discharge Orders: Discharge Order (Routine); Ordered 03/28/19 Ordered By: Hussein De La Paz/Other Patient Handouts: A1C Admission Data Admit Date/Time: 03/24/19 13:44 Attending Provider: Hussein Harp Admit Provider: Michael Guillen Primary Care Provider: Adeola Colorado Other Interventions: Discharge Summary Assessment (RN) Last Done: 03/28/19 13:02 DC Date/Time DO NOT enter until pt leaves facility: 03/28/19 13:53
== END 2019-03-28 13:53 | disposition home health service (06) | DRG 92 ==
LOC: ED 08:57 → 2N 08:57 → SUATTDRO 13:44 → 2N 16:28